=== PATIENT | female | born 1940 | race Caucasian/White ===

== ENCOUNTER → 2016-09-28 | Outpatient (CLI) | payer MEDICARE, MEDICAID ==
[~2016-09-28] MED LIST: ALDACTONE 25MG25 M1 PO; ASPIRIN 81M81 MG/TA2 PO; CLARITIN 1010 MG/TAB PO; COLACE 100100 MG/CAP PO; COREG 3.123.125 MG/T PO; DEPAKOTE 125MG125 MG PO; DULCOLAX S10 MG/SUPP RC; GERI-TUSSI100 MG/5 M PO; KLOR-CON20 MEQ PO; LASIX 20MG TABL20 MG PO; LIPITOR 10MG10 MG PO; MILK OF MA400 MG/52 PO; MIRALAX PA17 GM/Dose PO; MULTIPLE VITAMI1 CAP PO; PEPCID40 MG PO; PERIDEX (CHLOR480 ML MM; SYNTHROID0.075 MG/T PO; TRADJENTA5 MG PO; TYLENOL 325MG325 MG PO; ULTRAM 50MG TAB50 MG PO; ZOFRAN 4MG T4 MG/TAB PO; ZOLOFT 25MG25 MG PO
[2016-09-28 19:48] LABS: ADJUSTED CALCIUM 9.4 mg/dL (8.4-10.2); BILIRUBIN,TOTAL 0.7 mg/dL (0.0-1.0); CALCIUM 9.4 mg/dL (8.4-10.2); CREATININE, serum 0.87 mg/dL (0.52-1.25); POTASSIUM 4.2 mmol/L (3.4-5.0); TOTAL PROTEIN 7.4 gm/dL (6.4-8.2)
[2016-09-28 20:03] LABS: BASO % 0.5 % (0.0-2.0); EOS # 0.2 (0.0-0.7); GRAN # 3.5 (1.4-6.5); GRAN % 60.3 % (42.2-75.2); HEMATOCRIT 38.9 % (37.0-47.0); HEMOGLOBIN 12.4 g/dl (12.5-16.0); LYMPH # 1.4 (1.2-3.4); LYMPH % 24.8 % (20.0-51.0); MEAN CELL VOLUME 92 fl (80.0-100.0); MEAN CORPUSCULAR HEMOGLOBIN 30 pg (27.0-31.0); MEAN CORPUSCULAR HGB CONC 32 g/dl (33.0-37.0); MEAN PLATELET VOLUME 9.4 fl (7.4-10.4); MONO # 0.6 (0.1-0.6); MONO % 9.9 % (1.7-9.3); PLATELET COUNT 227 K/mm3 (130-400); RED BLOOD COUNT 4.21 M/mm3 (4.10-5.30); REDCELL DISTRIBUTION WIDTH-CV 14.5 % (11.5-14.5); WHITE BLOOD COUNT 5.8 K/mm3 (4.8-10.8)
== END ==
LOC: ZCOL.LAB 19:44
PROVIDERS: Internal Medicine
DX: I10 Essential (primary) hypertension (principal); K21.9 Gastro-esophageal reflux disease without esophagitis; F32.89 Other specified depressive episodes

== ENCOUNTER → 2016-10-10 | Outpatient (CLI) | payer MEDICARE, MEDICAID | LOC: ZCOL.LAB 14:23 | DX: E03.8 Other specified hypothyroidism (principal) ==

== ENCOUNTER 2016-11-01 13:37 | Day surgery (SDC) | payer MEDICARE, MEDICAID ==
[~2016-11-01] VITALS: Ht 157.5 cm; Wt 61.2 kg
[2016-11-01 13:58] VITALS: BP 135/82; PULSE 80; TEMP 97.6
[2016-11-01] MEDS ORDERED: MILK OF MA400 MG/52 PO (14:17)
[2016-11-01] MEDS ORDERED: COLACE 100100 MG/CAP PO (14:17)
[2016-11-01] MEDS ORDERED: ALDACTONE 25MG25 M1 PO (14:18)
[2016-11-01] MEDS ORDERED: TRADJENTA5 MG PO (14:18)
[2016-11-01] MEDS ORDERED: PERIDEX (CHLOR480 ML MM (14:19)
[2016-11-01] MEDS ORDERED: LASIX 20MG TABL20 MG PO (14:19)
[2016-11-01] MEDS ORDERED: PEPCID40 MG PO (14:20)
[2016-11-01] MEDS ORDERED: LIPITOR 10MG10 MG PO (14:20)
[2016-11-01] MEDS ORDERED: MIRALAX PA17 GM/Dose PO (14:21)
[2016-11-01] MEDS ORDERED: DULCOLAX S10 MG/SUPP RC (14:22)
[2016-11-01] MEDS ORDERED: TYLENOL 325MG325 MG PO (14:23)
[2016-11-01] MEDS ORDERED: GERI-TUSSI100 MG/5 M PO (14:23)
[2016-11-01] MEDS ORDERED: ULTRAM 50MG TAB50 MG PO (14:24)
[2016-11-01] MEDS ORDERED: COREG 3.123.125 MG/T PO (14:24)
[2016-11-01] MEDS ORDERED: ZOFRAN 4MG T4 MG/TAB PO (14:25)
[2016-11-01] MEDS ORDERED: ASPIRIN 81M81 MG/TA2 PO (14:25)
[2016-11-01] MEDS ORDERED: SYNTHROID0.075 MG/T PO (14:26)
[2016-11-01] MEDS ORDERED: CLARITIN 1010 MG/TAB PO (14:26)
[2016-11-01] MEDS ORDERED: KLOR-CON20 MEQ PO (14:27)
[2016-11-01] MEDS ORDERED: ZOLOFT 25MG25 MG PO (14:28)
[2016-11-01] MEDS ORDERED: MULTIPLE VITAMI1 CAP PO (14:29)
[2016-11-01] MEDS ORDERED: DEPAKOTE 125MG125 MG PO (14:30)
== END 2016-11-01 15:15 ==
LOC: SDCO 13:37
DX: K94.23 Gastrostomy malfunction (principal); R13.10 Dysphagia, unspecified

== ENCOUNTER → 2016-11-14 | Outpatient (CLI) | payer MEDICARE, MEDICAID | LOC: ZCOL.LAB 12:16 → COL.LAB 12:16 | DX: E03.8 Other specified hypothyroidism (principal); Z02.89 Encounter for other administrative examinations ==

== ENCOUNTER → 2016-12-22 | Outpatient (CLI) | payer MEDICARE, MEDICAID ==
[2016-12-22 12:23] LABS: ADJUSTED CALCIUM 9.2 mg/dL (8.4-10.2); ALBUMIN 3.5 gm/dL (3.5-5.0); BILIRUBIN,TOTAL 0.7 mg/dL (0.0-1.0); CALCIUM 8.8 mg/dL (8.4-10.2); CREATININE, serum 0.73 mg/dL (0.52-1.25); POTASSIUM 4.6 mmol/L (3.4-5.0); TOTAL PROTEIN 6.2 gm/dL (6.4-8.2)
== END ==
LOC: ZCOL.LAB 07:30
PROVIDERS: Internal Medicine
DX: Z43.1 Encounter for attention to gastrostomy (principal); F32.9 Major depressive disorder, single episode, unspecified; E78.4 Other hyperlipidemia

== ENCOUNTER → 2016-12-28 | Outpatient (CLI) | payer MEDICARE, MEDICAID ==
[2016-12-29 00:26] LABS: PH 5 (5-8); SQUAMOUS EPITHELIAL None Seen /hpf; URINE APPEARANCE Clear; URINE BACTERIA None Seen /hpf; URINE BILIRUBIN Negative (NEGATIVE); URINE BLOOD 1+ (NEGATIVE); URINE COLOR Yellow; URINE GLUCOSE Negative (NEGATIVE); URINE KETONE Negative (NEGATIVE); URINE RBC 0-2 /hpf; URINE UROBILINOGEN Negative (NEGATIVE); URINE WBC 0-2 /hpf
== END ==
LOC: ZCOL.LAB 23:47
PROVIDERS: Internal Medicine
DX: N39.0 Urinary tract infection, site not specified (principal)

== ENCOUNTER → 2017-01-10 | Outpatient (CLI) | payer MEDICARE, MEDICAID | LOC: ZCOL.LAB 03:06 | DX: E03.8 Other specified hypothyroidism (principal) ==

== ENCOUNTER → 2017-02-15 | Outpatient (CLI) | payer MEDICARE, MEDICAID ==
[2017-02-15 21:36] LABS: BASO # 0.1 (0.0-0.2); BASO % 0.9 % (0.0-2.0); EOS # 0.4 (0.0-0.7); EOS % 5.2 % (0-4.0); GRAN # 4.1 (1.4-6.5); GRAN % 58.4 % (42.2-75.2); HEMOGLOBIN 12.1 g/dl (12.5-16.0); LYMPH # 1.8 (1.2-3.4); LYMPH % 25.6 % (20.0-51.0); MEAN CELL VOLUME 89 fl (80.0-100.0); MEAN CORPUSCULAR HEMOGLOBIN 29 pg (27.0-31.0); MEAN CORPUSCULAR HGB CONC 33 g/dl (33.0-37.0); MEAN PLATELET VOLUME 9.4 fl (7.4-10.4); MONO # 0.7 (0.1-0.6); MONO % 9.3 % (1.7-9.3); PLATELET COUNT 258 K/mm3 (130-400); RED BLOOD COUNT 4.13 M/mm3 (4.10-5.30); REDCELL DISTRIBUTION WIDTH-CV 14.6 % (11.5-14.5)
[2017-02-15 21:38] LABS: HEMATOCRIT 36.7 % (37.0-47.0)
[2017-02-15 21:41] LABS: CREATININE, serum 0.8 mg/dL (0.52-1.25); POTASSIUM 3.9 mmol/L (3.4-5.0)
== END ==
LOC: ZCOL.LAB 21:29
PROVIDERS: Internal Medicine
DX: I25.5 Ischemic cardiomyopathy (principal)

== ENCOUNTER → 2017-04-23 | Outpatient (CLI) | payer MEDICARE, MEDICAID | LOC: ZCOL.LAB 11:26 | DX: E11.9 Type 2 diabetes mellitus without complications (principal) ==

== ENCOUNTER → 2017-07-02 | Outpatient (CLI) | payer MEDICAID ==
[2017-07-02 10:29] LABS: MUCOUS Present /lpf; PH 5 (5-8); SQUAMOUS EPITHELIAL 0-2 /hpf; URINE APPEARANCE Clear; URINE BACTERIA None Seen /hpf; URINE BILIRUBIN Negative (NEGATIVE); URINE BLOOD 2+ (NEGATIVE); URINE COLOR Yellow; URINE GLUCOSE Negative (NEGATIVE); URINE KETONE Negative (NEGATIVE); URINE LEUKOCYTE ESTERASE Negative (NEGATIVE); URINE PROTEIN(semi-quant) Negative (NEGATIVE); URINE RBC 0-2 /hpf; URINE UROBILINOGEN Negative (NEGATIVE); URINE WBC 0-2 /hpf
[2017-07-02 10:41] LABS: COLLECTION METHOD CLEAN CATCH
== END ==
LOC: ZCOL.LAB 10:19
PROVIDERS: Internal Medicine
DX: N39.0 Urinary tract infection, site not specified (principal)

== ENCOUNTER → 2017-07-02 | Outpatient (CLI) | payer MEDICAID | LOC: ZCOL.LAB 19:58 | DX: Z01.89 Encounter for other specified special examinations (principal) ==

== ENCOUNTER → 2017-09-27 | Outpatient (CLI) | payer MEDICAID ==
[2017-09-27 10:32] LABS: HEMATOCRIT 42.3 % (37.0-47.0); HEMOGLOBIN 14.4 g/dl (12.5-16.0); MEAN CELL VOLUME 90 fl (80.0-100.0); MEAN CORPUSCULAR HEMOGLOBIN 31 pg (27.0-31.0); MEAN CORPUSCULAR HGB CONC 34 g/dl (33.0-37.0); MEAN PLATELET VOLUME 9.3 fl (7.4-10.4); PLATELET COUNT 231 K/mm3 (130-400); RED BLOOD COUNT 4.71 M/mm3 (4.10-5.30)
[2017-09-27 10:41] LABS: CALCIUM 9.3 mg/dL (8.4-10.2); CREATININE, serum 0.77 mg/dL (0.52-1.25); POTASSIUM 4.8 mmol/L (3.4-5.0)
[2017-09-27 11:04] LABS: VALPROIC ACID (DEPAKENE) 40.1 ug/mL (50.0-100.0)
== END ==
LOC: ZCOL.LAB 10:20
PROVIDERS: Internal Medicine
DX: I50.20 Unspecified systolic (congestive) heart failure (principal); I25.5 Ischemic cardiomyopathy; F32.9 Major depressive disorder, single episode, unspecified

== ENCOUNTER 2017-10-28 04:32 | Emergency (ER) | payer MEDICAID ==
[~2017-10-28] VITALS: Wt 65.0 kg
[2017-10-28 07:15] VITALS: BP 144/86; PULSE 80
== END 2017-10-28 07:15 | disposition home or self-care (01) ==
LOC: COL.ER 04:32
DX: R04.0 Epistaxis (principal); I11.0 Hypertensive heart disease with heart failure; I50.9 Heart failure, unspecified; Z79.82 Long term (current) use of aspirin

== ENCOUNTER → 2017-12-05 | Outpatient (CLI) | payer MEDICAID ==
[2017-12-05 11:11] LABS: ANION GAP 11 mmol/L (7-16); BLOOD UREA NITROGEN 11 mg/dL (7-17); CARBON DIOXIDE 32 mmol/L (22-30); CHLORIDE 95 mmol/L (98-107); CREATININE, serum 0.69 mg/dL (0.52-1.25); GLUCOSE 112 mg/dL (74-106); POTASSIUM 4.6 mmol/L (3.4-5.0); SODIUM 137 mmol/L (137-145)
[2017-12-05 11:12] LABS: BASO % 0.7 % (0.0-2.0); EOS # 0.3 (0.0-0.7); EOS % 4.8 % (0-4.0); GRAN # 3.8 (1.4-6.5); HEMATOCRIT 40.3 % (37.0-47.0); HEMOGLOBIN 13.5 g/dl (12.5-16.0); LYMPH # 0.8 (1.2-3.4); LYMPH % 14.7 % (20.0-51.0); MEAN CELL VOLUME 91 fl (80.0-100.0); MEAN CORPUSCULAR HEMOGLOBIN 31 pg (27.0-31.0); MEAN CORPUSCULAR HGB CONC 34 g/dl (33.0-37.0); MONO # 0.5 (0.1-0.6); MONO % 9.4 % (1.7-9.3); PLATELET COUNT 196 K/mm3 (130-400); RED BLOOD COUNT 4.41 M/mm3 (4.10-5.30); REDCELL DISTRIBUTION WIDTH-CV 13.3 % (11.5-14.5)
== END ==
LOC: ZLAB.STJ 10:56
PROVIDERS: Internal Medicine
DX: E11.9 Type 2 diabetes mellitus without complications (principal); I69.091 Dysphagia following nontraumatic subarachnoid hemorrhage

== ENCOUNTER → 2017-12-21 | Outpatient (CLI) | payer MEDICARE, MEDICAID ==
[2017-12-22 01:53] LABS: COLLECTION METHOD CLEAN CATCH
[2017-12-22 01:59] LABS: PH 6 (5-8); SQUAMOUS EPITHELIAL 0-2 /hpf; URINE APPEARANCE Clear; URINE BACTERIA Rare /hpf; URINE BILIRUBIN Negative (NEGATIVE); URINE BLOOD 1+ (NEGATIVE); URINE COLOR Yellow; URINE GLUCOSE Negative (NEGATIVE); URINE KETONE Negative (NEGATIVE); URINE LEUKOCYTE ESTERASE Trace (NEGATIVE); URINE NITRATE Negative (NEGATIVE); URINE PROTEIN(semi-quant) Negative (NEGATIVE); URINE RBC 0-2 /hpf
== END ==
LOC: ZCOL.LAB 23:53
PROVIDERS: Internal Medicine
DX: N39.0 Urinary tract infection, site not specified (principal)

== ENCOUNTER → 2018-01-16 | Outpatient (REF) ==
[2018-01-16 12:23] LABS: HEMATOCRIT 37.8 % (37.0-47.0); HEMOGLOBIN 12.7 g/dl (12.5-16.0); MEAN CELL VOLUME 90 fl (80.0-100.0); MEAN CORPUSCULAR HEMOGLOBIN 30 pg (27.0-31.0); MEAN CORPUSCULAR HGB CONC 34 g/dl (33.0-37.0); MEAN PLATELET VOLUME 9.5 fl (7.4-10.4); PLATELET COUNT 160 K/mm3 (130-400); RED BLOOD COUNT 4.18 M/mm3 (4.10-5.30); REDCELL DISTRIBUTION WIDTH-CV 13.3 % (11.5-14.5)
[2018-01-16 12:29] LABS: CREATININE, serum 0.8 mg/dL (0.52-1.25); POTASSIUM 4.3 mmol/L (3.4-5.0)
== END ==
LOC: ZCOL.LAB 12:10
PROVIDERS: Internal Medicine
DX: G45.8 Other transient cerebral ischemic attacks and related syndromes (principal)

== ENCOUNTER → 2018-02-01 | Outpatient (REF) ==
[2018-02-01 11:42] LABS: CHOLESTEROL RISK RATIO 3.3
[2018-02-01 12:13] LABS: THYROID STIMULATING HORMONE 0.696 uIU/mL (0.465-4.680)
== END ==
LOC: ZCOL.LAB 11:25
PROVIDERS: Internal Medicine
DX: Z01.89 Encounter for other specified special examinations (principal)

== ENCOUNTER → 2018-02-09 | Outpatient (REF) ==
[2018-02-09 11:57] LABS: MUCOUS Present /lpf; PH 6 (5-8); SQUAMOUS EPITHELIAL 0-2 /hpf; URINE APPEARANCE Clear; URINE BACTERIA Rare /hpf; URINE BILIRUBIN Negative (NEGATIVE); URINE BLOOD 1+ (NEGATIVE); URINE COLOR Yellow; URINE GLUCOSE Negative (NEGATIVE); URINE KETONE Negative (NEGATIVE); URINE LEUKOCYTE ESTERASE 1+ (NEGATIVE); URINE NITRATE Negative (NEGATIVE); URINE PROTEIN(semi-quant) Negative (NEGATIVE); URINE RBC 0-2 /hpf; URINE UROBILINOGEN Negative (NEGATIVE)
[2018-02-09 12:40] LABS: COLLECTION METHOD CLEAN CATCH
== END ==
LOC: ZCOL.LAB 11:29
PROVIDERS: Internal Medicine
DX: N39.0 Urinary tract infection, site not specified (principal)

== ENCOUNTER → 2018-02-15 | Outpatient (CLI) | payer MEDICARE, MEDICAID ==
[2018-02-15 12:31] LABS: CALCIUM 8.9 mg/dL (8.4-10.2); CREATININE, serum 0.75 mg/dL (0.52-1.25); POTASSIUM 4.8 mmol/L (3.4-5.0)
== END ==
LOC: ZCOL.LAB 11:57
PROVIDERS: Internal Medicine
DX: I50.20 Unspecified systolic (congestive) heart failure (principal)

== ENCOUNTER → 2018-03-04 | Outpatient (CLI) | payer MEDICARE, MEDICAID ==
[2018-03-04 12:53] LABS: CALCIUM 8.4 mg/dL (8.4-10.2); CREATININE, serum 0.78 mg/dL (0.52-1.25); POTASSIUM 4.6 mmol/L (3.4-5.0)
== END ==
LOC: ZCOL.LAB 11:27
PROVIDERS: Internal Medicine
DX: I25.5 Ischemic cardiomyopathy (principal)

== ENCOUNTER 2018-06-01 01:18 | Emergency (ER) | payer MEDICARE, MEDICAID ==
[~2018-06-01] VITALS: Ht 157.5 cm; Wt 65.9 kg
[2018-06-01 01:26] VITALS: TEMP 97.6
[2018-06-01] MEDS ORDERED: MELATONIN5 M1 SL (02:49)
[2018-06-01] MEDS ORDERED: DESYREL 50MG50 MG PO (02:50)
[2018-06-01] MEDS ORDERED: DITROPAN 5MG TAB5 MG PO (02:51)
[2018-06-01] MEDS ORDERED: ELIQUIS 5MG PO (02:51)
[2018-06-01] MEDS ORDERED: SEROQUEL 2525 MG/TAB PO (02:53)
[2018-06-01] MEDS ORDERED: ATIVAN 0.50.5 MG/TAB PO ×2 (02:54)
[2018-06-01] MEDS ORDERED: EFFEXOR-XR150 MG PO (02:54)
[2018-06-01] MEDS ORDERED: ARICEPT10 MG PO (02:55)
[2018-06-01] MEDS ORDERED: DOXYCYCLINE HY100 MG PO (02:59)
[2018-06-01 03:20] VITALS: BP 142/93; PULSE 80
== END 2018-06-01 03:22 ==
LOC: COL.ER 01:18
DX: R04.0 Epistaxis (principal); I11.0 Hypertensive heart disease with heart failure; I50.9 Heart failure, unspecified; E11.9 Type 2 diabetes mellitus without complications; I48.91 Unspecified atrial fibrillation; E78.5 Hyperlipidemia, unspecified; F03.90 Unspecified dementia, unspecified severity, without behavioral disturbance, psychotic disturbance, mood disturbance, and anxiety; Z79.01 Long term (current) use of anticoagulants

== ENCOUNTER → 2018-06-24 | Outpatient (CLI) | payer MEDICARE, MEDICAID ==
[~2018-06-24] MED LIST changes: +ARICEPT10 MG PO; +ATIVAN 0.50.5 MG/TAB PO; +DESYREL 50MG50 MG PO; +DITROPAN 5MG TAB5 MG PO; +DOXYCYCLINE HY100 MG PO; +EFFEXOR-XR150 MG PO; +ELIQUIS 5MG PO; +MELATONIN5 M1 SL; +SEROQUEL 2525 MG/TAB PO
== END ==
LOC: ZCOL.LAB 09:54
DX: E11.9 Type 2 diabetes mellitus without complications (principal)

== ENCOUNTER → 2018-08-08 | Outpatient (CLI) | payer MEDICARE, MEDICAID ==
[~2018-08-08] MED LIST changes: +ASPIRIN E.C. 8181 MG PO; +K-TAB10 PO; +OMNICEF 300MG300 MG PO
[2018-08-08 13:29] LABS: BASO % 0.5 % (0.0-2.0); EOS # 0.3 (0.0-0.7); EOS % 4.1 % (0-4.0); GRAN # 4.5 (1.4-6.5); GRAN % 60.2 % (42.2-75.2); HEMATOCRIT 37.6 % (37.0-47.0); HEMOGLOBIN 11.8 g/dl (12.5-16.0); LYMPH # 1.9 (1.2-3.4); LYMPH % 25.8 % (20.0-51.0); MEAN CELL VOLUME 95 fl (80.0-100.0); MEAN CORPUSCULAR HEMOGLOBIN 30 pg (27.0-31.0); MEAN CORPUSCULAR HGB CONC 31 g/dl (33.0-37.0); MEAN PLATELET VOLUME 9.6 fl (7.4-10.4); MONO # 0.7 (0.1-0.6); MONO % 9.1 % (1.7-9.3); PLATELET COUNT 254 K/mm3 (130-400); RED BLOOD COUNT 3.94 M/mm3 (4.10-5.30); REDCELL DISTRIBUTION WIDTH-CV 14.5 % (11.5-14.5)
[2018-08-08 13:39] LABS: ALBUMIN 4.1 gm/dL (3.5-5.0); BILIRUBIN,TOTAL 0.6 mg/dL (0.0-1.0); CREATININE, serum 0.72 mg/dL (0.52-1.25); POTASSIUM 4.3 mmol/L (3.4-5.0); TOTAL PROTEIN 7.1 gm/dL (6.4-8.2); URIC ACID 5.5 mg/dL (2.5-6.2)
[2018-08-08 14:09] LABS: THYROID STIMULATING HORMONE 4.03 uIU/mL (0.465-4.680)
== END ==
LOC: ZCOL.LAB 11:47
PROVIDERS: Internal Medicine
DX: E11.9 Type 2 diabetes mellitus without complications (principal)

== ENCOUNTER → 2018-09-18 | Outpatient (CLI) | payer MEDICARE, MEDICAID ==
[2018-09-18 11:40] LABS: BASO % 0.2 % (0.0-2.0); EOS # 0.2 (0.0-0.7); GRAN # 8.5 (1.4-6.5); HEMOGLOBIN 10.6 g/dl (12.5-16.0); LYMPH # 1.1 (1.2-3.4); LYMPH % 10.5 % (20.0-51.0); MEAN CELL VOLUME 90 fl (80.0-100.0); MEAN CORPUSCULAR HEMOGLOBIN 29 pg (27.0-31.0); MEAN CORPUSCULAR HGB CONC 32 g/dl (33.0-37.0); MEAN PLATELET VOLUME 9.3 fl (7.4-10.4); MONO # 0.8 (0.1-0.6); MONO % 7.6 % (1.7-9.3); PLATELET COUNT 339 K/mm3 (130-400); RED BLOOD COUNT 3.69 M/mm3 (4.10-5.30)
[2018-09-18 12:00] LABS: HEMATOCRIT 33.1 % (37.0-47.0)
== END ==
LOC: ZCOL.LAB 10:29
PROVIDERS: Internal Medicine
DX: R26.2 Difficulty in walking, not elsewhere classified (principal)

== ENCOUNTER → 2018-09-23 | Outpatient (CLI) | payer MEDICARE, MEDICAID ==
[2018-09-24 10:26] LABS: IRON,SERUM 63 ug/dL (35-150)
[2018-09-24 10:36] LABS: TOTAL IRON BINDING CAPACITY 257 ug/dL (265-497)
== END ==
LOC: ZCOL.LAB 16:12
PROVIDERS: Internal Medicine
DX: I50.20 Unspecified systolic (congestive) heart failure (principal); R26.2 Difficulty in walking, not elsewhere classified

== ENCOUNTER 2018-11-01 10:51 | Emergency (ER) | payer MEDICARE, MEDICAID ==
[~2018-11-01] VITALS: Ht 157.5 cm; Wt 62.2 kg
[2018-11-01 11:02] VITALS: BP 123/66; TEMP 98.1
[2018-11-01] MEDS ORDERED: ULTRAM 50MG TAB50 MG PO (11:49)
[2018-11-01 12:29] VITALS: PULSE 80
== END 2018-11-01 12:27 | disposition home or self-care (01) ==
LOC: COL.ER 10:51
DX: R04.0 Epistaxis (principal); I48.91 Unspecified atrial fibrillation; E11.9 Type 2 diabetes mellitus without complications; I50.9 Heart failure, unspecified; F03.90 Unspecified dementia, unspecified severity, without behavioral disturbance, psychotic disturbance, mood disturbance, and anxiety; Z79.82 Long term (current) use of aspirin; Z95.0 Presence of cardiac pacemaker; Z90.710 Acquired absence of both cervix and uterus

== ENCOUNTER → 2018-12-10 | Outpatient (CLI) | payer MEDICARE, MEDICAID ==
[2018-12-10 09:56] LABS: BASO # 0.1 (0.0-0.2); BASO % 0.5 % (0.0-2.0); EOS # 0.4 (0.0-0.7); EOS % 4.4 % (0-4.0); GRAN # 5.7 (1.4-6.5); GRAN % 59.2 % (42.2-75.2); HEMATOCRIT 33.3 % (37.0-47.0); HEMOGLOBIN 10.8 g/dl (12.5-16.0); LYMPH # 2.5 (1.2-3.4); LYMPH % 26.4 % (20.0-51.0); MEAN CELL VOLUME 91 fl (80.0-100.0); MEAN CORPUSCULAR HEMOGLOBIN 30 pg (27.0-31.0); MEAN CORPUSCULAR HGB CONC 32 g/dl (33.0-37.0); MONO # 0.8 (0.1-0.6); MONO % 8.7 % (1.7-9.3); PLATELET COUNT 314 K/mm3 (130-400); RED BLOOD COUNT 3.65 M/mm3 (4.10-5.30); REDCELL DISTRIBUTION WIDTH-CV 16.9 % (11.5-14.5)
[2018-12-10 09:58] LABS: ALBUMIN 4.1 gm/dL (3.5-5.0); BILIRUBIN,TOTAL 0.5 mg/dL (0.0-1.0); CALCIUM 9.1 mg/dL (8.4-10.2); CHOLESTEROL RISK RATIO 2.8; CREATININE, serum 0.67 (0.52-1.25); POTASSIUM 4.5 mmol/L (3.4-5.0); TOTAL PROTEIN 7.3 gm/dL (6.4-8.2)
[2018-12-10 10:28] LABS: THYROID STIMULATING HORMONE 4.67 uIU/mL (0.465-4.680)
== END ==
LOC: ZCOL.LAB 08:29
PROVIDERS: Internal Medicine
DX: I50.43 Acute on chronic combined systolic (congestive) and diastolic (congestive) heart failure (principal); I25.5 Ischemic cardiomyopathy; R26.2 Difficulty in walking, not elsewhere classified; R74.8 Abnormal levels of other serum enzymes

== ENCOUNTER 2018-12-21 03:12 | Emergency (ER) | payer MEDICARE, MEDICAID ==
[~2018-12-21] VITALS: Ht 157.5 cm; Wt 63.6 kg
[2018-12-21 03:22] VITALS: BP 153/72; PULSE 80; TEMP 97.5
[2018-12-21] MEDS ORDERED: CLEOCIN HCL300 MG PO (03:57)
== END 2018-12-21 05:36 | disposition home or self-care (01) ==
LOC: COL.ER 03:12
DX: R04.0 Epistaxis (principal); I10 Essential (primary) hypertension; F03.90 Unspecified dementia, unspecified severity, without behavioral disturbance, psychotic disturbance, mood disturbance, and anxiety; Z79.82 Long term (current) use of aspirin; Z87.891 Personal history of nicotine dependence; Z90.710 Acquired absence of both cervix and uterus

== ENCOUNTER → 2019-05-09 | Outpatient (CLI) | payer MEDICARE, MEDICAID ==
[~2019-05-09] MED LIST changes: +CLEOCIN HCL300 MG PO
[2019-05-09 16:44] LABS: BASO % 0.4 % (0.0-2.0); EOS # 0.2 (0.0-0.7); EOS % 3.9 % (0-4.0); GRAN # 3.8 (1.4-6.5); GRAN % 70.9 % (42.2-75.2); HEMATOCRIT 38.9 % (37.0-47.0); HEMOGLOBIN 12.6 g/dl (12.5-16.0); LYMPH # 0.8 (1.2-3.4); LYMPH % 14.5 % (20.0-51.0); MEAN CELL VOLUME 92 fl (80.0-100.0); MEAN CORPUSCULAR HEMOGLOBIN 30 pg (27.0-31.0); MEAN CORPUSCULAR HGB CONC 32 g/dl (33.0-37.0); MEAN PLATELET VOLUME 9.8 fl (7.4-10.4); MONO # 0.5 (0.1-0.6); MONO % 9.9 % (1.7-9.3); PLATELET COUNT 217 K/mm3 (130-400); RED BLOOD COUNT 4.22 M/mm3 (4.10-5.30); REDCELL DISTRIBUTION WIDTH-CV 14.7 % (11.5-14.5)
[2019-05-09 17:13] LABS: BILIRUBIN,TOTAL 0.7 mg/dL (0.0-1.0); CALCIUM 8.5 mg/dL (8.4-10.2); CREATININE, serum 0.75 (0.52-1.25); POTASSIUM 4.8 mmol/L (3.4-5.0); TOTAL PROTEIN 7.1 gm/dL (6.4-8.2)
== END ==
LOC: ZCOL.LAB 14:22
PROVIDERS: Internal Medicine
DX: I50.42 Chronic combined systolic (congestive) and diastolic (congestive) heart failure (principal)

== ENCOUNTER → 2019-05-28 | Outpatient (CLI) | payer MEDICARE, MEDICAID ==
[2019-05-28 13:03] LABS: PH 6 (5-8); URINE APPEARANCE Hazy; URINE BACTERIA None Seen /hpf; URINE BILIRUBIN Negative (NEGATIVE); URINE BLOOD 2+ (NEGATIVE); URINE COLOR Yellow; URINE GLUCOSE Negative (NEGATIVE); URINE KETONE Negative (NEGATIVE); URINE LEUKOCYTE ESTERASE 2+ (NEGATIVE); URINE NITRATE Negative (NEGATIVE); URINE PROTEIN(semi-quant) Negative (NEGATIVE); URINE UROBILINOGEN Negative (NEGATIVE)
[2019-05-28 13:44] LABS: COLLECTION METHOD CLEAN CATCH
== END ==
LOC: ZCOL.LAB 10:57
PROVIDERS: Internal Medicine
DX: N39.0 Urinary tract infection, site not specified (principal)

== ENCOUNTER 2019-06-19 14:06 | Inpatient (IN) | payer MEDICARE, MEDICAID ==
[~2019-06-19] VITALS: Ht 165.1 cm; Wt 76.7 kg
[2019-06-19 15:02] LABS: BASO % 0.3 % (0.0-2.0); GRAN # 10.3 (1.4-6.5); GRAN % 88.4 % (42.2-75.2); HEMATOCRIT 33.4 % (37.0-47.0); HEMOGLOBIN 11.2 g/dl (12.5-16.0); LYMPH # 0.4 (1.2-3.4); LYMPH % 3.4 % (20.0-51.0); MEAN CELL VOLUME 89 fl (80.0-100.0); MEAN CORPUSCULAR HEMOGLOBIN 30 pg (27.0-31.0); MEAN CORPUSCULAR HGB CONC 34 g/dl (33.0-37.0); MONO # 0.8 (0.1-0.6); MONO % 7.2 % (1.7-9.3); PLATELET COUNT 252 K/mm3 (130-400); RED BLOOD COUNT 3.74 M/mm3 (4.10-5.30)
[2019-06-19 15:25] LABS: ALBUMIN 3.9 gm/dL (3.5-5.0); BILIRUBIN,TOTAL 1.2 mg/dL (0.0-1.0); CALCIUM 8.7 mg/dL (8.4-10.2); CREATININE, serum 0.85 (0.52-1.25); POTASSIUM 4.6 mmol/L (3.4-5.0); TOTAL PROTEIN 7.4 gm/dL (6.4-8.2)
[2019-06-19 17:13] LABS: COLLECTION METHOD CLEAN CATCH
[2019-06-19 17:21] LABS: TROPONIN-I 0.053 ng/mL (0.000-0.035)
[2019-06-19 17:39] LABS: MUCOUS Present /lpf; PH 6 (5-8); URINE APPEARANCE Cloudy; URINE BACTERIA Many /hpf; URINE BILIRUBIN Negative (NEGATIVE); URINE BLOOD 3+ (NEGATIVE); URINE COLOR Yellow; URINE GLUCOSE Negative (NEGATIVE); URINE KETONE Negative (NEGATIVE); URINE LEUKOCYTE ESTERASE 1+ (NEGATIVE); URINE NITRATE Negative (NEGATIVE); URINE PROTEIN(semi-quant) Negative (NEGATIVE)
[2019-06-19 18:01] LABS: ARTERIAL BLD GAS O2 SATURATION 96.7 % (92-100); ARTERIAL BLD GAS TCO2 CT 22.8; ARTERIAL BLOOD GAS BASE EXCESS -1.3 (-2-2); ARTERIAL BLOOD GAS HCO3 21.8 meq/L (22-26); ARTERIAL BLOOD GAS PCO2 31.9 mmHg (35-45); ARTERIAL BLOOD GAS PO2 87.2 mmHg (80-100); ARTERIAL BLOOD GAS pH 7.45 (7.35-7.45)
--- NOTE | 2019-06-19 18:15 | NUR ---
Pt up to unit from ED. Pt situated in room and Dr. Landa in to see pt now. Pt report given to Briseida FORMAN.
[2019-06-19 18:30] VITALS: BP 139/62; PULSE 111; TEMP 98
[2019-06-19] MEDS ORDERED: VENLAFAXINE225 MG PO (19:16)
[2019-06-19] MEDS ORDERED: FERROUS GL325 MG/TAB (19:17)
[2019-06-19] MEDS ORDERED: SEROQUEL 2525 MG/TAB PO (19:19)
[2019-06-19 19:39] VITALS: BP 150/82; PULSE 80; TEMP 98.5
[2019-06-19] MEDS ORDERED: ALDACTONE 25MG25 M1 PO (19:46)
--- NOTE | 2019-06-19 19:51 | NUR ---
Partial 5-page completed over the phone with patient's daughter, Thien. Privacy password given. All questions answered.
--- NOTE | 2019-06-19 20:45 | NUR ---
Shift assessment complete. Patient in bed, arouses to voice. Disoriented x4. Speech clear, able to participate in conversation. Denies pain. Incontinent of urine, brief changed, lopez-care provided. HR regular, murmur noted. Patient able to shift self in bed. Notified pt that RN had spoken with Thien, her daughter. Patient remembers daughter, and states she is ok with staff speaking to her. Denies further needs at this time. Will continue to monitor.
[2019-06-19 23:19] VITALS: BP 130/58; PULSE 81; TEMP 100.3
[2019-06-19] MEDS ORDERED: DEPAKOTE 125MG125 M1 PO (23:37)
[2019-06-19] MEDS ORDERED: MUCINEX 60600 MG/TA1 PO (23:40)
[2019-06-19] MEDS ORDERED: SYNTHROID0.1 MG/TAB PO (23:43)
[2019-06-19] MEDS ORDERED: DESYREL 50MG50 MG PO (23:48)
[2019-06-19] MEDS ORDERED: TYLENOL 325MG325 MG PO (23:50)
[2019-06-19] MEDS ORDERED: VOLTAREN GEL 1%1 TU TP (23:52)
[2019-06-19] MEDS ORDERED: ZOFRAN 4MG T4 MG/TAB PO (23:53)
[2019-06-19] MEDS ORDERED: NYSTATIN CREAM15 GM TP (23:56)
--- NOTE | 2019-06-20 | NUR ---
Attempted to complete 0000 neuro check. Patient awake. Stating she wants to be left alone. When asked to open her eyes, she stated she would, but will not open them to complete neuro assessment. Disoriented to place, and states she does not want to give me her name and . Able to move all 4 extremities on bed. Also able to reposition herself in bed. Denies pain. Will continue to monitor.
--- NOTE | 2019-06-20 00:32 | NUR ---
6 hour troponin 0.105 (previous 0.053). Notified MELVIN Han. En route.
[2019-06-20 03:55] VITALS: BP 134/68; PULSE 80; TEMP 99.9
--- NOTE | 2019-06-20 04:00 | NUR ---
Patient in bed, resting. Oriented to name, but not . Disoriented to place/time/situation. Pt allowed neuro assessment to be completed. Denies pain. States she wants to go back to sleep. Denies further needs at this time. Will continue to monitor.
--- NOTE | 2019-06-20 05:45 | NUR ---
Called by lab, + staph aureus. Notified MELVIN Han. Patient on abx.
--- NOTE | 2019-06-20 07:42 | NUR ---
Vancomycin Initial Dosing Pharmacy Note Ordering provider: Adriana Landa MD Indication/duration: [facility] BACTEREMIA LABS: WBC 11.6, SCr 0.85, CrCl ~45 Recommendation: VANCOMYCIN 17MG/KG Loading dose: 1.5 grams Maintenance dose: 1.25 grams every 24 hours Trough goal: 15-20 ug/mL. TROUGH 06/23/19 @ 0630
[2019-06-20 08:41] VITALS: BP 126/61; PULSE 80; TEMP 98.9
[2019-06-20 09:42] LABS: BASO % 0.1 % (0.0-2.0); GRAN # 5.8 (1.4-6.5); GRAN % 85.5 % (42.2-75.2); LYMPH # 0.4 (1.2-3.4); LYMPH % 6.3 % (20.0-51.0); MEAN CELL VOLUME 91 fl (80.0-100.0); MEAN CORPUSCULAR HEMOGLOBIN 30 pg (27.0-31.0); MEAN CORPUSCULAR HGB CONC 33 g/dl (33.0-37.0); MEAN PLATELET VOLUME 8.9 fl (7.4-10.4); MONO # 0.5 (0.1-0.6); MONO % 6.9 % (1.7-9.3); PLATELET COUNT 193 K/mm3 (130-400); RED BLOOD COUNT 3.69 M/mm3 (4.10-5.30); REDCELL DISTRIBUTION WIDTH-CV 14.2 % (11.5-14.5)
[2019-06-20 09:48] LABS: HEMATOCRIT 33.6 % (37.0-47.0)
[2019-06-20 09:54] LABS: CALCIUM 8.2 mg/dL (8.4-10.2); CREATININE, serum 0.81 (0.52-1.25); POTASSIUM 4.1 mmol/L (3.4-5.0)
--- NOTE | 2019-06-20 10:14 | NUR ---
SAMIRA met with the patient and the patient's daughter, Thien Cali (ph#[phone]), to discuss discharge plan. The patient resides at [facility] for long-term care. The patient's daughter reports that the plan is for the patient to return back to [facility] upon discharge. SAMIRA presented and explained the Patient Choice Form to the patient and her daughter. The patient signed and she was provided a copy. The patient's PCP is Dr. Bharti York and the patient does not have advanced directives completed. The patient's daughter reports that she plans on working on getting them completed. SAMIRA offered a DPOA-HC form. The patient's daughter states that she plans to just do it at [facility]. SAMIRA contacted and faxed updates to Thien at [facility]. SAMIRA to continue to follow.
--- NOTE | 2019-06-20 10:47 | NUR ---
Pt alert to person but confused to time and place. Pt slept until breakfast arrived. Pt's daughter in to see pt and hospitalist saw pt while she was here. Pt has hx of alzheimers and no significant change from normal per daughter per cognition. Pt incontinent of urine. Pt assisted x1 to BSC with gait belt. Pt has smears of soft BM but no real results. Pt assisted back to bed and pt assisted to eat a couple bites of breakfast and then pt refused to eat more. Pt IV patent no redness or infiltration noted. Pt has fall precautions in place. Pt SOB with exertion to BSC. Critical Troponin called to Dr. Landa.
[2019-06-20 11:35] VITALS: BP 118/57; PULSE 80; TEMP 100.2
--- NOTE | 2019-06-20 15:21 | NUR ---
RA SP02 86% PLACED BACK ON 1 LPM NC 90%
[2019-06-20 16:14] VITALS: BP 111/57; PULSE 80; TEMP 97.5
--- NOTE | 2019-06-20 18:42 | NUR ---
Pt very restless and confused this afternoon. Pt incontinent of BMx2 and lopez cares provided. Pt has fall precautions in place. Pt denies pain. Pt IV patent no redness or infiltration. Pt spit out coreg.
[2019-06-20 19:35] VITALS: BP 136/63; PULSE 80; TEMP 98.7
--- NOTE | 2019-06-20 20:30 | NUR ---
Initial shift assessment done- confused- wanting to sit on the edge of bed, states she doesnt want to be here- angry at times-- states shes not taking any meds,, did get her to take her seraquel with some diet pepsi but refused aricept-on fall precautions- close to desk, bed alarm on
[2019-06-20 23:14] VITALS: BP 143/63; PULSE 80; TEMP 97.8
[2019-06-21 03:59] VITALS: BP 120/60; PULSE 80; TEMP 97.4
--- NOTE | 2019-06-21 06:33 | NUR ---
Did sleep all night after seraquel was given last night-- was incontinent of urine/stool x2 this shift-
[2019-06-21 06:46] LABS: HEMOGLOBIN 11.3 g/dl (12.5-16.0); MEAN CELL VOLUME 92 fl (80.0-100.0); MEAN CORPUSCULAR HEMOGLOBIN 30 pg (27.0-31.0); MEAN CORPUSCULAR HGB CONC 33 g/dl (33.0-37.0); MEAN PLATELET VOLUME 9.4 fl (7.4-10.4); PLATELET COUNT 188 K/mm3 (130-400); RED BLOOD COUNT 3.77 M/mm3 (4.10-5.30); REDCELL DISTRIBUTION WIDTH-CV 14.2 % (11.5-14.5)
[2019-06-21 06:49] LABS: HEMATOCRIT 34.7 % (37.0-47.0)
[2019-06-21 06:55] LABS: CALCIUM 8.4 mg/dL (8.4-10.2); CREATININE, serum 0.83 (0.52-1.25); POTASSIUM 3.9 mmol/L (3.4-5.0)
[2019-06-21 08:02] LABS: BAND 28 % (0-10); EOSINOPHIL 2 % (0-4); LYMPHOCYTE 11 % (20.0-51.0); NEUTROPHILS 43 % (42.0-75.2)
[2019-06-21 08:03] LABS: PLATELET ESTIMATE NORMAL (NORMAL)
[2019-06-21 09:00] VITALS: BP 129/53; PULSE 79; TEMP 98.2
--- NOTE | 2019-06-21 11:07 | NUR ---
Patient was assisted out of bed for breakfast after daughter arrived around 0900. Patient was unhappy about getting out of bed and eating. Was displeased with having VS taken. Responses received from patient would be "what do you care." She did drink some diet coke that daughter brought in but wasn't very interested in eating breakfast. She transferred to recliner with one assist, required a lot of cueing. Respirations are even and nonlabored. When asked if she was experiencing pain, again the answer was "what do you care." Call light and personal items are within reach.
[2019-06-21 13:21] VITALS: BP 113/55; PULSE 80; TEMP 97.7
[2019-06-21 16:02] VITALS: BP 130/74; PULSE 80
--- NOTE | 2019-06-21 20:00 | NUR ---
Initial shift assessment done- confused- trying to walk to the bathroom-very upset that the bed alarm goes off every time she stands up- explanation given but needs continual review-- did get pt to eat a few bites of supper, was able with much caoxing to get pt to take the seraquel/omnicef but refused aricept and lipitor--will wait for till pt calms down to restart INT
[2019-06-21 20:30] VITALS: BP 121/75; PULSE 82; TEMP 97
[2019-06-21 23:26] VITALS: BP 114/58; PULSE 80; TEMP 97.7
[2019-06-22 03:40] VITALS: PULSE 80
--- NOTE | 2019-06-22 05:40 | NUR ---
Did not sleep much last night- up every 45min- hour, standing at the side of the bed- upset about "how things are done here"- did get INT started to right hand- Incontinent of urine many times during the shift- pull-ups changed as needed, did have small amount of soft stool this morning- able to walk into bathroom with standby assist
[2019-06-22 07:40] LABS: BASO % 0.4 % (0.0-2.0); EOS # 0.2 (0.0-0.7); EOS % 2.2 % (0-4.0); GRAN % 72.5 % (42.2-75.2); HEMOGLOBIN 11.7 g/dl (12.5-16.0); LYMPH # 1.1 (1.2-3.4); LYMPH % 12.9 % (20.0-51.0); MEAN CELL VOLUME 90 fl (80.0-100.0); MEAN CORPUSCULAR HEMOGLOBIN 30 pg (27.0-31.0); MEAN CORPUSCULAR HGB CONC 33 g/dl (33.0-37.0); MEAN PLATELET VOLUME 9.6 fl (7.4-10.4); MONO # 0.9 (0.1-0.6); MONO % 10.8 % (1.7-9.3); PLATELET COUNT 228 K/mm3 (130-400); RED BLOOD COUNT 3.94 M/mm3 (4.10-5.30); REDCELL DISTRIBUTION WIDTH-CV 13.8 % (11.5-14.5)
[2019-06-22 07:48] LABS: HEMATOCRIT 35.3 % (37.0-47.0)
[2019-06-22 08:04] LABS: CALCIUM 8.3 mg/dL (8.4-10.2); CREATININE, serum 0.7 (0.52-1.25); POTASSIUM 3.7 mmol/L (3.4-5.0)
--- NOTE | 2019-06-22 08:16 | NUR ---
Patient is very agitated this morning. Does not understand why she is in the hospital. Did attempt to explain situation and she began cursing. States she feels as if she is in halfway. Has been assisted from bed to chair multiple times. Did offer to walk and patient declined. Have tried to redirect several times without success. Currently has been laying in bed with eyes closed by her choice. Has been provided with ice and diet coke. Personal items and call light are within reach.
[2019-06-22 16:28] VITALS: BP 134/60; PULSE 80; TEMP 98.1
--- NOTE | 2019-06-22 18:09 | NUR ---
Patient is restingin bed, daughter is at bedside, they are talking on phone to a family member. Patient has required 1:1 sitter since 1500, has been trying to climb out of bed, has been yelling at staff, pulled on IV. Did remove old IV, replaced with new with patient's permission. She did take IV antibiotic with intention of leaving after. Did receive PRN anxiety medication and was able to rest. Has been plesant and cooperative with staff since then. Call light and personal items are withn reach.
[2019-06-23] VITALS (13 sets, daily range): BP systolic 117–170; BP diastolic 51–73; PULSE 79–80; TEMP 97.1–98.1
--- NOTE | 2019-06-23 05:22 | NUR ---
Pt has had a restless night. Pt has been in and out of sleep throughout the night. Pt is incontinent of bladder. No BM this shift. Pt has had a 1:1 sitter for safety. No further concerns at this time. Call light and personal belongings within reach.
--- NOTE | 2019-06-23 07:26 | NUR ---
Report given to DASIA Sneed. Pt slept well throughout the night. Pt was on a 1:1 sitter. Pt did pick at her IV, pressing on the current IV access helps with patency. No further concerns at this time.
--- NOTE | 2019-06-23 08:34 | NUR ---
Assessment completed, drowsy but easy to arouse, confused and agitated when awake, patient refusing to take PO a.m meds at this time, will try again in a little while, does not appear to be in any acute pain or discomfort, when asked questions her only respone this morning is "I dont care", heart Paced on Tele, lungs CTA/ no reps.difficulty, patient is incontient of urine, no skin breakdown noted from prior shift, we have changed positong and bed alarm is on, will continue to monitor
--- NOTE | 2019-06-23 09:47 | NUR ---
SAMIRA contacted and faxed updates to Thien at [facility]. SAMIRA to continue to follow.
--- NOTE | 2019-06-23 11:00 | NUR ---
Pt picked up by Hany Sneed.report to Hany Sneed.
--- NOTE | 2019-06-23 11:45 | NUR ---
patient finsihed with MICAH and is very drowsy, vital signs stable, will continue to monitor
--- NOTE | 2019-06-23 16:02 | NUR ---
Patient still very drowsy, vital signs remain stable, she is agitated when we wake her up, refusing PO intake
[2019-06-24 04:48] VITALS: BP 130/70; PULSE 80; TEMP 97.9
[2019-06-24 07:42] VITALS: BP 143/65; PULSE 80
--- NOTE | 2019-06-24 08:09 | NUR ---
Assessment completed, alert but disoriented, she is agitated and does not want us doing anything with her this morning and keeps telling us to get out/ will not answer questions appropriately or follow simple commands or requests, vital signs stable, does not appear to be in pain or discomfort, paced on tele, from the best I could tell from limited assessment her lungs are CTA/ she is not having any noticeable resp.difficulty, she is incontinent of urine and we are doing frequent checks/ care, patient changes positiong in bed independently, as of right now patient is refusing to take any medicaitons or eat breakfast/ will re-attempt in a little while, discharge planning for today, will continue to monitor
--- NOTE | 2019-06-24 09:49 | NUR ---
Patient is getting more agitated as the morning goes on, she is becoming more impulsive and trying to get up on her own, all fall precautions are in place, hospitalist aware of patients condition, patient not willing to take any PO meds as this time and is suspicious of our care
[2019-06-24 11:44] VITALS: BP 462/77; PULSE 80; TEMP 97.3
[2019-06-24] MEDS ORDERED: CEFAZOLIN SODI100 ML IV (11:46)
[2019-06-24] MEDS ORDERED: PRINIVIL5 MG PO (11:47)
--- NOTE | 2019-06-24 13:01 | NUR ---
The patient is to discharge today, 06/24, back to [facility] for a skilled stay. Transportation is to be by private vehicle, via the patient's daughter (Thien) around 1530. SAMIRA informed the patient's RN and Thien at [facility] of this. They were both in agreeance to the time. SAMIRA also explained the IM form to Thien via phone. Thien gave SW her verbal consent. No additional needs at this time.
--- NOTE | 2019-06-24 17:01 | NUR ---
patient transferring back to [facility] living, She is being trasnported by her daughter via private vehicle, PICC line placed prior to discharge, patient will get 4 weeks of outpatient IV Abx tx, I have called and given report to receiving nurse at [facility]
== END 2019-06-24 17:03 | DRG 689 ==
LOC: COL.ER 14:06 → MEDICAL 16:40
PROVIDERS: Family Medicine; Nurse Practitioner Family; Physician Assistant; ADMIT Student in an Organized Health Care Education/Training Program
PROC: 02HV33Z Insertion of Infusion Device into Superior Vena Cava, Percutaneous Approach (ICD-10-PCS; principal; 2019-06-24)
DX: N39.0 Urinary tract infection, site not specified (principal); I50.23 Acute on chronic systolic (congestive) heart failure; I21.4 Non-ST elevation (NSTEMI) myocardial infarction; G93.40 Encephalopathy, unspecified; R78.81 Bacteremia; F03.90 Unspecified dementia, unspecified severity, without behavioral disturbance, psychotic disturbance, mood disturbance, and anxiety; I11.0 Hypertensive heart disease with heart failure; I48.91 Unspecified atrial fibrillation; E78.5 Hyperlipidemia, unspecified; Z66 Do not resuscitate; E03.9 Hypothyroidism, unspecified; I08.1 Rheumatic disorders of both mitral and tricuspid valves; G47.00 Insomnia, unspecified; B95.61 Methicillin susceptible Staphylococcus aureus infection as the cause of diseases classified elsewhere; I27.20 Pulmonary hypertension, unspecified; Z79.891 Long term (current) use of opiate analgesic; Z79.82 Long term (current) use of aspirin; Z95.2 Presence of prosthetic heart valve; Z95.810 Presence of automatic (implantable) cardiac defibrillator; Z87.891 Personal history of nicotine dependence; Z86.73 Personal history of transient ischemic attack (TIA), and cerebral infarction without residual deficits; Z90.710 Acquired absence of both cervix and uterus; Z88.0 Allergy status to penicillin; Z88.2 Allergy status to sulfonamides; Z88.5 Allergy status to narcotic agent
CPT/HCPCS: 99223-AI; 99232-AI; 99239; A4216; C1751; J0690; J0696; J1200; J1630; J1940; J2060; J3370; J7030; J7050

== ENCOUNTER → 2019-09-01 | Outpatient (CLI) | payer MEDICARE, MEDICAID ==
[~2019-09-01] MED LIST changes: +CEFAZOLIN SODI100 ML IV; +DEPAKOTE 125MG125 M1 PO; +FERROUS GL325 MG/TAB; +MUCINEX 60600 MG/TA1 PO; +NYSTATIN CREAM15 GM TP; +PRINIVIL5 MG PO; +SYNTHROID0.1 MG/TAB PO; +VENLAFAXINE225 MG PO; +VOLTAREN GEL 1%1 TU TP
[2019-09-01 12:24] LABS: CALCIUM 9.1 mg/dL (8.4-10.2); CREATININE, serum 0.87 (0.52-1.25); POTASSIUM 4.7 mmol/L (3.4-5.0)
== END ==
LOC: ZCOL.LAB 11:33
PROVIDERS: Internal Medicine
DX: I11.0 Hypertensive heart disease with heart failure (principal)

== ENCOUNTER 2019-12-04 02:29 | Emergency (ER) | payer MEDICARE, MEDICAID ==
[~2019-12-04] VITALS: Ht 157.5 cm; Wt 61.4 kg
[2019-12-04 02:36] VITALS: BP 129/79; TEMP 98.2
[2019-12-04 05:35] VITALS: PULSE 80
== END 2019-12-04 05:35 ==
LOC: COL.ER 02:29
DX: R04.0 Epistaxis (principal); I48.91 Unspecified atrial fibrillation; I11.0 Hypertensive heart disease with heart failure; I50.9 Heart failure, unspecified; F03.90 Unspecified dementia, unspecified severity, without behavioral disturbance, psychotic disturbance, mood disturbance, and anxiety; E03.9 Hypothyroidism, unspecified; Z95.2 Presence of prosthetic heart valve; Z86.73 Personal history of transient ischemic attack (TIA), and cerebral infarction without residual deficits; Z79.82 Long term (current) use of aspirin

== ENCOUNTER → 2020-01-10 | Outpatient (CLI) | payer MEDICARE, MEDICAID ==
[2020-01-10 08:35] LABS: BASO # 0.1 (0.0-0.2); BASO % 0.7 % (0.0-2.0); EOS # 0.5 (0.0-0.7); GRAN # 5.4 (1.4-6.5); GRAN % 62.3 % (42.2-75.2); HEMATOCRIT 38.8 % (37.0-47.0); LYMPH # 1.9 (1.2-3.4); LYMPH % 21.4 % (20.0-51.0); MEAN CELL VOLUME 99 fl (80.0-100.0); MEAN CORPUSCULAR HEMOGLOBIN 31 pg (27.0-31.0); MEAN CORPUSCULAR HGB CONC 31 g/dl (33.0-37.0); MONO # 0.8 (0.1-0.6); MONO % 9.3 % (1.7-9.3); PLATELET COUNT 267 K/mm3 (130-400); RED BLOOD COUNT 3.94 M/mm3 (4.10-5.30); REDCELL DISTRIBUTION WIDTH-CV 14.7 % (11.5-14.5)
== END ==
LOC: ZCOL.LAB 08:10
DX: Z20.828 Contact with and (suspected) exposure to other viral communicable diseases (principal)

== ENCOUNTER → 2020-01-20 | Outpatient (CLI) | payer MEDICARE, MEDICAID | LOC: ZCOL.LAB 12:40 | DX: E03.9 Hypothyroidism, unspecified (principal) ==

== ENCOUNTER → 2020-06-25 | Outpatient (CLI) | payer MEDICARE, MEDICAID ==
[2020-06-27 09:10] LABS: URINE MICROALBUMIN 6.6 mg/dL (0.0-1.7)
== END ==
LOC: ZCOL.LAB 15:03
PROVIDERS: Internal Medicine
DX: R32 Unspecified urinary incontinence (principal)

== ENCOUNTER → 2020-06-29 | Outpatient (CLI) | payer MEDICARE, MEDICAID ==
[2020-06-30 03:56] LABS: BASO % 0.5 % (0.0-2.0); EOS # 0.5 (0.0-0.7); EOS % 6.7 % (0-4.0); GRAN # 4.9 (1.4-6.5); GRAN % 64.5 % (42.2-75.2); HEMATOCRIT 45.8 % (37.0-47.0); HEMOGLOBIN 13.9 g/dl (12.5-16.0); LYMPH # 1.6 (1.2-3.4); LYMPH % 20.4 % (20.0-51.0); MEAN CELL VOLUME 101 fl (80.0-100.0); MEAN CORPUSCULAR HEMOGLOBIN 31 pg (27.0-31.0); MEAN CORPUSCULAR HGB CONC 30 g/dl (33.0-37.0); MEAN PLATELET VOLUME 10.4 fl (7.4-10.4); MONO # 0.6 (0.1-0.6); MONO % 7.6 % (1.7-9.3); PLATELET COUNT 279 K/mm3 (130-400); RED BLOOD COUNT 4.54 M/mm3 (4.10-5.30)
[2020-06-30 04:00] LABS: ALBUMIN 4.4 gm/dL (3.5-5.0); BILIRUBIN,TOTAL 0.4 mg/dL (0.0-1.0); CALCIUM 9.3 mg/dL (8.4-10.2); CREATININE, serum 1.27 (0.52-1.25); POTASSIUM 5.4 mmol/L (3.4-5.0); TOTAL PROTEIN 8.1 gm/dL (6.4-8.2)
[2020-06-30 04:05] LABS: VALPROIC ACID (DEPAKENE) 34.3 ug/mL (50.0-100.0)
== END ==
LOC: ZCOL.LAB 13:22
PROVIDERS: Internal Medicine
DX: I11.0 Hypertensive heart disease with heart failure (principal); I50.9 Heart failure, unspecified; G47.00 Insomnia, unspecified

== ENCOUNTER → 2020-07-07 | Outpatient (CLI) | payer MEDICARE, MEDICAID ==
[2020-07-07 14:02] LABS: CALCIUM 9.1 mg/dL (8.4-10.2); CREATININE, serum 1.01 (0.52-1.25); POTASSIUM 4.6 mmol/L (3.4-5.0)
== END ==
LOC: ZCOL.LAB 13:30
PROVIDERS: Internal Medicine
DX: I11.0 Hypertensive heart disease with heart failure (principal); I50.9 Heart failure, unspecified

== ENCOUNTER → 2020-09-29 | Outpatient (CLI) | payer MEDICARE, MEDICAID ==
[~2020-09-29] MED LIST changes: +SYNTHROID0.088 MG/T PO
[2020-09-29 19:07] LABS: ALBUMIN 3.6 gm/dL (3.5-5.0); BILIRUBIN UNCONJUGATED 0.3 mg/dL (0.0-1.1); BILIRUBIN,DIRECT 0.1 mg/dL (0.0-0.4); BILIRUBIN,TOTAL 0.4 mg/dL (0.0-1.0); TOTAL PROTEIN 6.8 gm/dL (6.4-8.2)
== END ==
LOC: ZCOL.LAB 13:12
PROVIDERS: Internal Medicine
DX: I11.0 Hypertensive heart disease with heart failure (principal); I50.9 Heart failure, unspecified

== ENCOUNTER → 2020-10-22 | Outpatient (CLI) | payer MEDICARE, MEDICAID ==
[2020-10-22 12:06] LABS: COLLECTION METHOD CLEAN CATCH
[2020-10-22 12:34] LABS: MUCOUS Present /lpf; PH 7 (5-8); URINE APPEARANCE Hazy; URINE BACTERIA Rare /hpf; URINE BILIRUBIN Negative (NEGATIVE); URINE BLOOD 1+ (NEGATIVE); URINE COLOR Yellow; URINE GLUCOSE Negative (NEGATIVE); URINE KETONE Negative (NEGATIVE); URINE LEUKOCYTE ESTERASE 3+ (NEGATIVE); URINE NITRATE Negative (NEGATIVE); URINE PROTEIN(semi-quant) Negative (NEGATIVE); URINE RBC 0-2 /hpf; URINE UROBILINOGEN Negative (NEGATIVE)
== END ==
LOC: ZCOL.LAB 11:37
PROVIDERS: Internal Medicine
DX: N39.0 Urinary tract infection, site not specified (principal)

== ENCOUNTER → 2021-01-06 | Outpatient (CLI) | payer MEDICARE, MEDICAID ==
[2021-01-06 15:00] LABS: ALBUMIN 3.9 gm/dL (3.5-5.0); BILIRUBIN,TOTAL 0.4 mg/dL (0.0-1.0); CALCIUM 9.1 mg/dL (8.4-10.2); CHOLESTEROL RISK RATIO 4.7; CREATININE, serum 0.76 (0.52-1.25); POTASSIUM 4.7 mmol/L (3.4-5.0)
[2021-01-06 15:16] LABS: VALPROIC ACID (DEPAKENE) 23.2 ug/mL (50.0-100.0)
[2021-01-06 15:41] LABS: THYROID STIMULATING HORMONE 1.49 uIU/mL (0.465-4.680)
== END ==
LOC: ZCOL.LAB 12:29
PROVIDERS: Internal Medicine
DX: E11.9 Type 2 diabetes mellitus without complications (principal); E03.9 Hypothyroidism, unspecified; F41.9 Anxiety disorder, unspecified

== ENCOUNTER → 2021-01-10 | Outpatient (CLI) | payer MEDICARE, MEDICAID ==
[2021-01-10 14:06] LABS: BASO % 0.4 % (0.0-2.0); EOS # 0.3 (0.0-0.7); EOS % 3.8 % (0-4.0); GRAN # 4.5 (1.4-6.5); GRAN % 64.5 % (42.2-75.2); HEMOGLOBIN 11.9 g/dl (12.5-16.0); LYMPH # 1.4 (1.2-3.4); LYMPH % 19.9 % (20.0-51.0); MEAN CELL VOLUME 95 fl (80.0-100.0); MEAN CORPUSCULAR HEMOGLOBIN 31 pg (27.0-31.0); MEAN CORPUSCULAR HGB CONC 32 g/dl (33.0-37.0); MEAN PLATELET VOLUME 10.1 fl (7.4-10.4); MONO # 0.8 (0.1-0.6); MONO % 11.3 % (1.7-9.3); PLATELET COUNT 240 K/mm3 (130-400); RED BLOOD COUNT 3.87 M/mm3 (4.10-5.30)
[2021-01-10 14:08] LABS: HEMATOCRIT 36.9 % (37.0-47.0)
== END ==
LOC: ZCOL.LAB 13:42
PROVIDERS: Internal Medicine
DX: I48.0 Paroxysmal atrial fibrillation (principal); E11.9 Type 2 diabetes mellitus without complications; I50.22 Chronic systolic (congestive) heart failure

== ENCOUNTER 2021-03-18 13:56 | Inpatient (IN) | payer MEDICARE, MEDICAID ==
[~2021-03-18] VITALS: Ht 157.5 cm; Wt 73.1 kg
[~2021-03-18 13:56] MED LIST changes: -SYNTHROID0.088 MG/T PO
[2021-03-18 14:56] LABS: BASO % 0.2 % (0.0-2.0); EOS % 0.3 % (0-4.0); GRAN # 11.1 (1.4-6.5); GRAN % 85.2 % (42.2-75.2); HEMOGLOBIN 11.4 g/dl (12.5-16.0); LYMPH # 0.6 (1.2-3.4); LYMPH % 4.4 % (20.0-51.0); MEAN CELL VOLUME 92 fl (80.0-100.0); MEAN CORPUSCULAR HEMOGLOBIN 30 pg (27.0-31.0); MEAN CORPUSCULAR HGB CONC 33 g/dl (33.0-37.0); MEAN PLATELET VOLUME 9.6 fl (7.4-10.4); MONO # 1.2 (0.1-0.6); MONO % 9.4 % (1.7-9.3); PLATELET COUNT 216 K/mm3 (130-400); RED BLOOD COUNT 3.78 M/mm3 (4.10-5.30); REDCELL DISTRIBUTION WIDTH-CV 13.5 % (11.5-14.5)
[2021-03-18 14:58] LABS: HEMATOCRIT 34.9 % (37.0-47.0)
[2021-03-18 15:06] LABS: ALBUMIN 3.9 gm/dL (3.5-5.0); BILIRUBIN,TOTAL 0.6 mg/dL (0.0-1.0); CALCIUM 8.8 mg/dL (8.4-10.2); CREATININE, serum 1.02 (0.52-1.25); POTASSIUM 4.3 mmol/L (3.4-5.0); TOTAL PROTEIN 7.5 gm/dL (6.4-8.2)
[2021-03-18 15:19] LABS: TROPONIN-I 0.037 ng/mL (0.000-0.035)
[2021-03-18 16:17] LABS: COLLECTION METHOD CLEAN CATCH
[2021-03-18 16:27] LABS: MUCOUS Present /lpf; PH 5 (5-8); SQUAMOUS EPITHELIAL None Seen /hpf; URINE APPEARANCE Turbid; URINE BACTERIA Moderate /hpf; URINE BILIRUBIN Negative (NEGATIVE); URINE BLOOD 2+ (NEGATIVE); URINE COLOR Yellow; URINE GLUCOSE Negative (NEGATIVE); URINE KETONE Negative (NEGATIVE); URINE LEUKOCYTE ESTERASE 3+ (NEGATIVE); URINE NITRATE Positive (NEGATIVE); URINE PROTEIN(semi-quant) 2+ (NEGATIVE); URINE RBC 20-50 /hpf; URINE UROBILINOGEN Negative (NEGATIVE)
[2021-03-18 18:17] VITALS: BP 106/51; PULSE 80; TEMP 98.8
--- NOTE | 2021-03-18 18:49 | NUR ---
REPORT RECEIVED FROM NURSE PAREKH IN THE ED. PT TRANSFERRED TO ROOM. PT IS PLEASANTLY CONFUSED. PT DOES NOT RECALL WHY SHE WAS BROUGHT TO THE ED. PT DAUGHTER AT THE BEDSIDE, SHE DOES NOT KNOW WHAT MEDICATIONS HER MOTHER TAKES BUT WILL TRY TO GET A LIST FROM [facility] WHICH THE PT RESIDES. PT ORIENTED MUCH POSSIBLE TO THE ROOM. BED ALARM ON. COMFORT MEASURES IN PLACE. CALL-LIGHT IN REACH. BED IN LOW POSITION. REPORT GIVEN TO NURSE MENDEZ.
[2021-03-18 20:17] VITALS: PULSE 86
[2021-03-19] VITALS (7 sets, daily range): BP systolic 96–117; BP diastolic 46–68; PULSE 80–81; TEMP 98–100.3
--- NOTE | 2021-03-19 05:29 | NUR ---
PT DID HAVE INTERMITTENT SLEEP THROUGH OUT NIGHT. PT REMAINS A/OX1, 02 ROOM AIR. PT DID HAVE ONE INCONTINENT EPISODE THROUGH OUT NIGHT. PT CHANGED, LINENS CHANGED, PT DENIES PAIN,N,V,D. PT EXPRESSES NO ADDITONAL NEEDS AT THIS TIME. BED LOW, DOOR REMAINS OPEN FOR VISIBILITY, CALL LIGHT WITHIN REACH.
--- NOTE | 2021-03-19 09:44 | NUR ---
SHIFT ASSESSMENT PREFORMED. SCHEDULED MEDICATIONS GIVEN. BRIEF CHANGED, BARRIER CREAM APPLIED. REDNESS IN GROIN NOTED. PATIENT IS A&O X1. PATIENT REFUSED BREAKFAST AND REQUESTED THAT SHE BE ABLE TO SLEEP. PATIENT DENIES ANY PAIN, DISCOMFORT, SOA, OR FURTHER NEEDS AT THIS TIME. CALL LIGHT IN REACH. FALL PRECAUTIONS IN PLACE.
[2021-03-19 10:09] LABS: BASO % 0.3 % (0.0-2.0); EOS % 0.1 % (0-4.0); GRAN % 82.5 % (42.2-75.2); HEMOGLOBIN 10.3 g/dl (12.5-16.0); LYMPH # 0.8 (1.2-3.4); LYMPH % 5.9 % (20.0-51.0); MEAN CELL VOLUME 96 fl (80.0-100.0); MEAN CORPUSCULAR HEMOGLOBIN 30 pg (27.0-31.0); MEAN CORPUSCULAR HGB CONC 31 g/dl (33.0-37.0); MONO # 1.4 (0.1-0.6); MONO % 10.6 % (1.7-9.3); PLATELET COUNT 213 K/mm3 (130-400); RED BLOOD COUNT 3.43 M/mm3 (4.10-5.30); REDCELL DISTRIBUTION WIDTH-CV 13.9 % (11.5-14.5)
[2021-03-19 10:12] LABS: CALCIUM 8.5 mg/dL (8.4-10.2); CHOLESTEROL RISK RATIO 4.2; CREATININE, serum 0.99 (0.52-1.25); HEMATOCRIT 32.8 % (37.0-47.0)
[2021-03-19 10:21] LABS: IRON,SERUM 24 ug/dL (35-150)
[2021-03-19 10:31] LABS: TOTAL IRON BINDING CAPACITY 252 ug/dL (265-497)
[2021-03-19 10:59] LABS: TSH w REFLEX 0.314 uIU/mL (0.350-4.940)
--- NOTE | 2021-03-19 11:01 | NUR ---
CRITICAL VALUE TROPONIN OF 0.[address] ZAFAR. PATIENT DENIES ANY SOB, CHEST PAIN, VSS.
--- NOTE | 2021-03-19 11:06 | NUR ---
DR. ZAFAR CONTACTED REGARDING PATIENT'S HISTORY OF HEMORRHAGIC STROKE AND USE OF LOVENOX. DR. BRUNO.
--- NOTE | 2021-03-19 13:30 | NUR ---
stopped by but nothing neededd at this time.
--- NOTE | 2021-03-19 16:01 | NUR ---
Plan is to return to [facility]. SW met with DTR Bertin [phone] about care. PCP is the facility wide doctore. DTR reports that at [facility] patient was able to dress herself, walk down to the dinner room and visited every other weekend with DTR. DTR reports that she would like her mother to return to and complete PT at [facility]. 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 RX are managed at the facility. Was not and is not currently using any mobility DME. Dtr reports that the patient has a pacemaker/defib device. Denies any use of oxygen but does report that patient indicated that she was out of breath. Will follow for additonal supports if needs.
--- NOTE | 2021-03-19 17:42 | NUR ---
PATIENT HAS HAD AN EVENTFUL DAY. PULLED OUT IV OUT OF RIGHT HAND. ATTEMPTED TO RESTART IV THREE TIMES. ABLE TO GET CATHETER PARTIALLY IN VEIN BEFORE PATIENT PULLED ARM AWAY, DISLODGING THE CATHETER. PATIENT HAS BEEN REFUSING TO EAT TODAY. MULTIPLE ITEMS OFFERED WITH NO SUCCESS. PATIENT DENIES ANY PAIN, DISCOMFORT, SOA, OR FURTHER NEEDS AT THIS TIME. CALL LIGHT IN REACH. FALL PRECAUTIONS IN PLACE.
[2021-03-20 04:15] VITALS: BP 125/52; PULSE 80; TEMP 98.6
--- NOTE | 2021-03-20 06:20 | NUR ---
PT SLEPT THROUGH ENTIRE NIGHT. PT DENIES PAIN,N,V,D. MEDICATIONS ADMINISTERED ORDERED. PT EXPRESSES NO ADDITONAL NEEDS.
[2021-03-20 07:24] VITALS: BP 147/57; PULSE 79; TEMP 98.5
--- NOTE | 2021-03-20 08:51 | NUR ---
UPON ENTERING THE ROOM, PATIENT RESTING QUIETLY. NO S/S OF PAIN OR DISCOMFORT. SCHEDULED MEDICAITONS GIVEN. SHIFT ASSESSMENT PREFORMED. PATIENT DENIES ANY FURTHER NEEDS AT THIS TIME. PATIENT ORIENTED TO SELF. VSS. CALL LIGHT IN REACH. FALL PRECAUTIONS IN PLACE.
--- NOTE | 2021-03-20 09:35 | NUR ---
PATIENT UP TO CHAIR.
[2021-03-20 12:31] VITALS: BP 118/56; PULSE 80; TEMP 98.2
[2021-03-20 16:03] VITALS: BP 117/66; PULSE 79; TEMP 98.3
--- NOTE | 2021-03-20 17:21 | NUR ---
PATIENT HAS HAD AN UNEVENTFUL DAY. HAS BEEN RESTING WITH DAUGHTER AT THE BEDSIDE. SCHEDULED MEDICATIONS GIVEN. VSS. PATIENT ONLY ORIENTATED TO SELF. CALL LIGHT IN REACH. FALL PRECAUTIONS IN PLACE.
[2021-03-20 20:08] VITALS: BP 116/55; PULSE 80; TEMP 98.4
--- NOTE | 2021-03-20 21:20 | NUR ---
Patient is resting in bed, alert not oriented, VSS, no pain, nausea or vomiting. Assessment completed, medications provided. No further needs at this time. Call light within reach.
[2021-03-21 00:04] VITALS: BP 104/63; PULSE 78; TEMP 98.2
[2021-03-21 04:19] VITALS: BP 112/64; PULSE 80; TEMP 97.7
--- NOTE | 2021-03-21 07:25 | NUR ---
Patient has been calm and disoriented at night. A couple of times she tried to get up, but she is weak to stand up by herself. She forgets where is she and why. She was oriented. Report will be given to day nurse.
[2021-03-21 07:30] LABS: BASO % 0.4 % (0.0-2.0); EOS # 0.2 (0.0-0.7); EOS % 3.3 % (0-4.0); GRAN % 67.7 % (42.2-75.2); HEMOGLOBIN 10.2 g/dl (12.5-16.0); LYMPH # 1.1 (1.2-3.4); LYMPH % 14.4 % (20.0-51.0); MEAN CELL VOLUME 94 fl (80.0-100.0); MEAN CORPUSCULAR HEMOGLOBIN 30 pg (27.0-31.0); MEAN CORPUSCULAR HGB CONC 32 g/dl (33.0-37.0); MONO % 13.2 % (1.7-9.3); PLATELET COUNT 216 K/mm3 (130-400); RED BLOOD COUNT 3.38 M/mm3 (4.10-5.30); REDCELL DISTRIBUTION WIDTH-CV 13.3 % (11.5-14.5)
[2021-03-21 07:31] LABS: HEMATOCRIT 31.7 % (37.0-47.0)
[2021-03-21 07:40] LABS: CALCIUM 8.5 mg/dL (8.4-10.2); CREATININE, serum 0.83 (0.52-1.25); POTASSIUM 3.6 mmol/L (3.4-5.0)
[2021-03-21 08:33] VITALS: BP 126/63; PULSE 81
--- NOTE | 2021-03-21 10:10 | NUR ---
Assessment completed, alert but disoriented /agitated/ impulsive and cantankerous, patient is on room debbi and o2 sats are WNL, her lungs are CTA as far I can tell from limited assessment ability, CXR was clear yesterday, pulse irregular/ she is not on telemetry but has hx of a.fib, patient refused IV and labs, daughter just arrive and is able to help with cares as the patient is very cantankerous and reluctanct to let staff help her, she did allow us to check her teperature and is Aferile, urine cx + for E.coli and patient on Omniceff for UTI, daughter reports "she looks so much better today" and hopes we can discharge her back to [facility] today
[2021-03-21] MEDS ORDERED: OMNICEF 300MG300 MG PO (11:54)
[2021-03-21 12:06] VITALS: BP 130/65; PULSE 80; TEMP 97.9
--- NOTE | 2021-03-21 12:34 | NUR ---
Lauren with [facility] accepts patient back to rn long term care care At [facility]. restuarant crew worker met with patient and her daughter and confirmed that daughter will transport today at 1:00. Worker faxed orders to [facility].
[2021-03-21] MEDS ORDERED: SYNTHROID0.088 MG/T PO (12:54)
--- NOTE | 2021-03-21 13:00 | NUR ---
Patient transferring back to [facility], her daughter and taking her by POV, discharge orders and paperwork given to daughter
[2021-03-21 13:44] VITALS: BP 130/65; PULSE 80; TEMP 97.9
[2021-03-21 16:00] VITALS: BP 133/70; PULSE 94; TEMP 99.8
== END 2021-03-21 14:00 | DRG 690 ==
LOC: COL.ER 13:56 → MEDICAL 16:20
PROVIDERS: Physician Assistant; ADMIT Internal Medicine
DX: N39.0 Urinary tract infection, site not specified (principal); E87.1 Hypo-osmolality and hyponatremia; I48.20 Chronic atrial fibrillation, unspecified; E03.9 Hypothyroidism, unspecified; D64.9 Anemia, unspecified; F03.90 Unspecified dementia, unspecified severity, without behavioral disturbance, psychotic disturbance, mood disturbance, and anxiety; Z20.822 Contact with and (suspected) exposure to COVID-19; R79.89 Other specified abnormal findings of blood chemistry; Z86.73 Personal history of transient ischemic attack (TIA), and cerebral infarction without residual deficits
CPT/HCPCS: 99232-AI; 99239; A9284; J0692; J0696; J1650; J7030; Q9967

== ENCOUNTER → 2021-05-09 | Outpatient (CLI) | payer MEDICARE, MEDICAID ==
[~2021-05-09] MED LIST changes: +SYNTHROID0.088 MG/T PO
[2021-05-09 13:00] LABS: CALCIUM 9.7 mg/dL (8.4-10.2); CREATININE, serum 0.82 mg/dL (0.57-1.11); POTASSIUM 4.3 mmol/L (3.5-4.5); THYROID STIMULATING HORMONE 3.044 uIU/mL (0.350-4.940)
== END ==
LOC: ZCOL.LAB 12:37
PROVIDERS: Internal Medicine
DX: E03.9 Hypothyroidism, unspecified (principal); E11.9 Type 2 diabetes mellitus without complications; I50.22 Chronic systolic (congestive) heart failure

== ENCOUNTER → 2021-07-08 | Outpatient (CLI) | payer MEDICARE, MEDICAID ==
[2021-07-08 17:32] LABS: COLLECTION METHOD CATHETER
[2021-07-08 17:43] LABS: BUDDING YEAST Present (NOT PRESENT); MUCOUS Present (NOT PRESENT); PH 7 (5-8); URINE APPEARANCE Cloudy (CLEAR/HAZY); URINE BACTERIA None Seen (NONE SEEN); URINE BILIRUBIN Negative (NEGATIVE); URINE BLOOD 2+ (NEGATIVE); URINE COLOR Yellow (YELLOW); URINE GLUCOSE Negative (NEGATIVE); URINE KETONE Negative (NEGATIVE); URINE LEUKOCYTE ESTERASE 3+ (NEGATIVE); URINE NITRATE Negative (NEGATIVE); URINE PROTEIN(semi-quant) Negative (NEGATIVE); URINE UROBILINOGEN Negative (NEGATIVE); URINE WBC >50 /hpf (0-2)
== END ==
LOC: ZCOL.LAB 16:50
PROVIDERS: Internal Medicine
DX: N39.0 Urinary tract infection, site not specified (principal)

== ENCOUNTER → 2021-12-21 | Outpatient (CLI) | payer MEDICARE, MEDICAID ==
[2021-12-21 09:37] LABS: COLLECTION METHOD CLEAN CATCH
[2021-12-21 09:54] LABS: MUCOUS Present (NOT PRESENT); PH 5 (5-8); SQUAMOUS EPITHELIAL None Seen /hpf (0-10); URINE APPEARANCE Clear (CLEAR/HAZY); URINE BACTERIA None Seen /hpf (NONE SEEN); URINE BILIRUBIN Negative (NEGATIVE); URINE BLOOD 2+ (NEGATIVE); URINE COLOR Amber (YELLOW); URINE GLUCOSE Negative (NEGATIVE); URINE KETONE 1+ (NEGATIVE); URINE LEUKOCYTE ESTERASE Trace (NEGATIVE); URINE NITRATE Negative (NEGATIVE); URINE PROTEIN(semi-quant) 1+ (NEGATIVE)
== END ==
LOC: ZCOL.LAB 09:27
PROVIDERS: Internal Medicine
DX: R32 Unspecified urinary incontinence (principal)

== ENCOUNTER → 2021-12-30 | Outpatient (CLI) | payer MEDICARE, MEDICAID ==
[~2021-12-30] MED LIST changes: +CENTRUM SILVER1 CTB PO; +EFFEXOR XR37.5 MG/CA PO; -FERROUS GL325 MG/TAB; +FERROUS GL325 MG/TAB PO; +K-DUR20 MEQ PO; +LASIX 40MG TABL40 MG PO
[2021-12-30 15:55] LABS: BASO % 0.2 % (0.0-2.0); EOS % 0.2 % (0.0-4.0); GRAN # 6.4 K/mm3 (1.4-6.5); GRAN % 76.8 % (42.2-75.2); HEMATOCRIT 34.1 % (37.0-47.0); HEMOGLOBIN 10.6 g/dl (12.5-16.0); LYMPH # 1.1 K/mm3 (1.2-3.4); MEAN CELL VOLUME 91 fl (80.0-100.0); MEAN CORPUSCULAR HEMOGLOBIN 28 pg (27-31); MEAN CORPUSCULAR HGB CONC 31 g/dl (33.0-37.0); MEAN PLATELET VOLUME 9.8 fl (7.4-10.4); MONO # 0.8 K/mm3 (0.1-0.6); MONO % 9.2 % (1.7-9.3); PLATELET COUNT 311 K/mm3 (130-400); RED BLOOD COUNT 3.75 M/mm3 (4.10-5.30); REDCELL DISTRIBUTION WIDTH-CV 14.6 % (11.5-14.5)
[2021-12-30 15:58] LABS: ALBUMIN 2.8 gm/dL (3.4-4.8); CALCIUM 8.5 mg/dL (8.4-10.2); CREATININE, serum 0.96 mg/dL (0.57-1.11); POTASSIUM 4.5 mmol/L (3.5-4.5)
[2021-12-30 16:28] LABS: THYROID STIMULATING HORMONE 4.005 uIU/mL (0.350-4.940)
== END ==
LOC: ZCOL.LAB 15:25
PROVIDERS: Internal Medicine
DX: I50.22 Chronic systolic (congestive) heart failure (principal); E03.9 Hypothyroidism, unspecified

== ENCOUNTER 2021-12-31 17:32 | Inpatient (IN) | payer MEDICARE, MEDICAID ==
[~2021-12-31] VITALS: Ht 152.4 cm; Wt 64.1 kg
[~2021-12-31 17:32] MED LIST changes: -CENTRUM SILVER1 CTB PO; -EFFEXOR XR37.5 MG/CA PO; -K-DUR20 MEQ PO; -LASIX 40MG TABL40 MG PO
[2021-12-31 18:03] LABS: BASO % 0.1 % (0.0-2.0); GRAN # 7.9 K/mm3 (1.4-6.5); GRAN % 87.6 % (42.2-75.2); LYMPH # 0.5 K/mm3 (1.2-3.4); LYMPH % 5.8 % (20.0-51.0); MEAN CELL VOLUME 87 fl (80.0-100.0); MEAN CORPUSCULAR HGB CONC 33 g/dl (33.0-37.0); MEAN PLATELET VOLUME 9.6 fl (7.4-10.4); MONO # 0.5 K/mm3 (0.1-0.6); MONO % 5.9 % (1.7-9.3); PLATELET COUNT 252 K/mm3 (130-400); RED BLOOD COUNT 3.34 M/mm3 (4.10-5.30); REDCELL DISTRIBUTION WIDTH-CV 14.9 % (11.5-14.5)
[2021-12-31 18:04] LABS: HEMATOCRIT 28.9 % (37.0-47.0); HEMOGLOBIN 9.4 g/dl (12.5-16.0); MEAN CORPUSCULAR HEMOGLOBIN 28 pg (27-31)
[2021-12-31 18:20] LABS: ALBUMIN 2.5 gm/dL (3.4-4.8); BILIRUBIN,TOTAL 1.2 mg/dL (0.2-1.2); CALCIUM 8.6 mg/dL (8.4-10.2); CREATININE, serum 0.94 mg/dL (0.57-1.11); POTASSIUM 4.3 mmol/L (3.5-4.5); TOTAL PROTEIN 6.8 gm/dL (6.2-8.1)
[2021-12-31 18:41] LABS: COLLECTION METHOD CLEAN CATCH
[2021-12-31 18:53] LABS: MUCOUS Present (NOT PRESENT); PH 5 (5-8); SQUAMOUS EPITHELIAL 0-2 /hpf (0-10); URINE APPEARANCE Cloudy (CLEAR/HAZY); URINE BACTERIA Rare /hpf (NONE SEEN); URINE BLOOD 2+ (NEGATIVE); URINE COLOR Amber (YELLOW); URINE GLUCOSE Negative (NEGATIVE); URINE KETONE Trace (NEGATIVE); URINE NITRATE Negative (NEGATIVE); URINE PROTEIN(semi-quant) 2+ (NEGATIVE); URINE UROBILINOGEN >=4.0 (NEGATIVE)
[2021-12-31] MEDS ORDERED: CENTRUM SILVER1 CTB PO (19:32)
[2021-12-31] MEDS ORDERED: DULCOLAX S10 MG/SUPP RC (19:33)
[2021-12-31] MEDS ORDERED: EFFEXOR XR37.5 MG/CA PO (19:34)
[2021-12-31] MEDS ORDERED: LASIX 40MG TABL40 MG PO (19:35)
[2021-12-31] MEDS ORDERED: MIRALAX PA17 GM/Dose PO (19:36)
[2021-12-31] MEDS ORDERED: K-DUR20 MEQ PO (19:37)
[2021-12-31 20:54] VITALS: BP 111/51; PULSE 78; TEMP 98.6
--- NOTE | 2021-12-31 20:55 | NUR ---
PT ARRIVES VIA CART FROM ED. IS ALERT TO SELF. INCONTINENT OF URINE AND STOOL, FAM CARES GIVEN. NOTED REDDENED COCCYX, NO OPEN AREAS. DRY SKIN OF LOWER LEGS AND FEET, NO OPEN AREAS. HAS RFA SL. KEEPS EYES CLOSED WHEN SPOKEN TO. BED ALARM ON.
[2021-12-31] MEDS ORDERED: SEROQUEL 2525 MG/TAB PO (22:30)
[2021-12-31 23:46] VITALS: BP 132/56; PULSE 81; TEMP 98.4
[2022-01-01 03:48] VITALS: BP 124/45; PULSE 78; TEMP 99
--- NOTE | 2022-01-01 03:55 | NUR ---
INCONTINENT OF LARGE AMOUNT OF DARK URINE, FAM CARES PROVIDED, REPOSITIONED TO LEFT SIDE. PT MOANS WITH TURNING AND SAYS "STOP IT". BED ALARM ON.
--- NOTE | 2022-01-01 05:55 | NUR ---
PT TAKES AM MED WITH SIP OF WATER. HAS BEEN INCONTINENT OF URINE AND STOOL THIS SHIFT. REPOSITIONED BY STAFF.
--- NOTE | 2022-01-01 06:50 | NUR ---
Report received, assumed care for day shift.
[2022-01-01 07:02] LABS: BASO % 0.3 % (0.0-2.0); GRAN % 84.1 % (42.2-75.2); LYMPH # 0.5 K/mm3 (1.2-3.4); LYMPH % 7.5 % (20.0-51.0); MEAN CELL VOLUME 89 fl (80.0-100.0); MEAN CORPUSCULAR HGB CONC 32 g/dl (33.0-37.0); MEAN PLATELET VOLUME 9.6 fl (7.4-10.4); MONO # 0.5 K/mm3 (0.1-0.6); MONO % 7.4 % (1.7-9.3); PLATELET COUNT 206 K/mm3 (130-400)
[2022-01-01 07:04] LABS: HEMATOCRIT 28.5 % (37.0-47.0); MEAN CORPUSCULAR HEMOGLOBIN 28 pg (27-31)
[2022-01-01 07:17] LABS: CALCIUM 8.2 mg/dL (8.4-10.2); CREATININE, serum 0.81 mg/dL (0.57-1.11); POTASSIUM 4.1 mmol/L (3.5-4.5)
[2022-01-01 07:26] VITALS: BP 110/43; PULSE 79; TEMP 98.1
--- NOTE | 2022-01-01 07:45 | NUR ---
Assessment complete. Alert but only oriented to self. Denies pain/nausea/shortness of breath. VS remain stable. States "I am in a really bad mood today." Noted to have redness to coccyx-repositioned in bed with pillow support. INT to right wrist flushes without difficulty-no s/s of infiltration noted. SCDs bilat. Attempted to administer AM medications however patient kept spitting them out into bed. Will retry later when breakfast arrives. Plan of care discussed for this shift to include meds/calling for questions/concerns. Call light in reach. Will monitor.
[2022-01-01 12:00] VITALS: BP 97/49; PULSE 80; TEMP 98.2
--- NOTE | 2022-01-01 12:39 | NUR ---
Report from PCT that patients O2 saturation was 87% on room air while sleeping. O2 saturation increases to 92% when awake. Patient has been very drowsy today-applied O2@2L/NC with sleeping.
--- NOTE | 2022-01-01 13:28 | NUR ---
Pt is suffers from dementia and DPOA-HC is Thien at [phone]. Pt is from [facility] and needs help with all ADLs. Pt is DNR and Thien does not want life saving measures at all. PCP is urszula Lakhani and gets medications from [facility]. No other needs stated at this time. Sw to await further recommendations. DC: return back to [facility].
[2022-01-01 16:00] VITALS: BP 104/54; PULSE 81; TEMP 97.7
--- NOTE | 2022-01-01 17:28 | NUR ---
Patient has slept entire shift. Is alert to self but not oriented. VS have remained stable. Denied pain/nausea/shortness of breath. Refused most of medications-would spit them out into bed. INT to right wrist flushes well-no s/s of infiltration noted. Denies current needs. Call light in reach. Will monitor.
[2022-01-01 19:53] VITALS: BP 119/62; PULSE 84; TEMP 98.6
--- NOTE | 2022-01-01 21:25 | NUR ---
PT IN BED, ANSWERS TO HER NAME BEING CALLED, NOT SURE WHERE SHE IS. TAKES HS MEDS IN PUDDING, DOES WELL. HAS DRANK ALMOST ENTIRE ENSURE SHAKE. INT TO RFA FLUSHES WELL. IS INCONTINENT OF URINE, PUREWIK IN PLACE. COCCYX REDDENED, INTACT. SCDS ON BILATERALLY. AFEBRILE. BED ALARM ON.
[2022-01-02] VITALS (7 sets, daily range): BP systolic 114–130; BP diastolic 57–66; PULSE 79–90; TEMP 98.7–99.6
[2022-01-02 06:33] LABS: BASO % 0.3 % (0.0-2.0); EOS # 0.1 K/mm3 (0.0-0.7); EOS % 1.1 % (0.0-4.0); GRAN # 5.3 K/mm3 (1.4-6.5); GRAN % 74.2 % (42.2-75.2); LYMPH # 0.8 K/mm3 (1.2-3.4); LYMPH % 11.7 % (20.0-51.0); MEAN CELL VOLUME 88 fl (80.0-100.0); MEAN CORPUSCULAR HGB CONC 32 g/dl (33.0-37.0); MEAN PLATELET VOLUME 9.9 fl (7.4-10.4); MONO # 0.8 K/mm3 (0.1-0.6); MONO % 11.7 % (1.7-9.3); PLATELET COUNT 250 K/mm3 (130-400); RED BLOOD COUNT 3.15 M/mm3 (4.10-5.30); REDCELL DISTRIBUTION WIDTH-CV 14.9 % (11.5-14.5)
--- NOTE | 2022-01-02 06:35 | NUR ---
PT AWAKE, TAKES AM MED WITHOUT PROBLEM. IS ALERT TO SELF. PLEASANT THIS AM.
[2022-01-02 06:46] LABS: CALCIUM 8.5 mg/dL (8.4-10.2); CREATININE, serum 0.76 mg/dL (0.57-1.11); POTASSIUM 4.1 mmol/L (3.5-4.5)
[2022-01-02 06:54] LABS: HEMATOCRIT 27.8 % (37.0-47.0); HEMOGLOBIN 8.9 g/dl (12.5-16.0); MEAN CORPUSCULAR HEMOGLOBIN 28 pg (27-31)
--- NOTE | 2022-01-02 08:49 | NUR ---
Lauren, at [facility], contacted this SW and clarified that the patient is a long-term care resident with them. SW faxed updates to [facility]. *Discharge plan: [facility]*
--- NOTE | 2022-01-03 01:04 | NUR ---
PATIENT IN BED ON ROOM ENTRY. ALERT BUT NOT ORIENTED. HS MEDS PER EMAR. DENIES PAIN. CHECK AND CHANGE PER ENCODING CLERK, PATIENT DOES NOT WANT TO BE TOUCHED MUCH AND REFUSES TEMP CHECK. PUREWICK IS IN PLACE. IVF TO R FA.
[2022-01-03 04:00] VITALS: BP 127/61; PULSE 82; TEMP 98.3
[2022-01-03 08:03] VITALS: BP 134/64; PULSE 81; TEMP 98.9
--- NOTE | 2022-01-03 10:03 | NUR ---
LEFT VOICEMAIL FOR DR DE JESUS REGARDING CONSULT FOR PATIENT.
[2022-01-03 10:48] LABS: MEAN CELL VOLUME 87 fl (80.0-100.0); MEAN CORPUSCULAR HGB CONC 32 g/dl (33.0-37.0); MEAN PLATELET VOLUME 9.3 fl (7.4-10.4); PLATELET COUNT 280 K/mm3 (130-400); RED BLOOD COUNT 3.47 M/mm3 (4.10-5.30); REDCELL DISTRIBUTION WIDTH-CV 14.7 % (11.5-14.5)
[2022-01-03 10:51] LABS: HEMATOCRIT 30.2 % (37.0-47.0); HEMOGLOBIN 9.7 g/dl (12.5-16.0); MEAN CORPUSCULAR HEMOGLOBIN 28 pg (27-31)
[2022-01-03 10:58] LABS: CALCIUM 8.4 mg/dL (8.4-10.2); CREATININE, serum 0.66 mg/dL (0.57-1.11); POTASSIUM 4.5 mmol/L (3.5-4.5)
[2022-01-03 11:25] LABS: BAND 13 % (0-10); EOSINOPHIL 2 % (0-4); LYMPHOCYTE 17 % (20.0-51.0); NEUTROPHILS 61 % (42.0-75.2); PLATELET ESTIMATE NORMAL (NORMAL)
[2022-01-03 11:45] VITALS: BP 137/58; PULSE 78; TEMP 98.4
--- NOTE | 2022-01-03 13:07 | NUR ---
PT/OT are recommending the patient return back to [facility]. SAMIRA staffed with the hospitalist. The patient may be able to discharge tomorrow. SAMIRA notified Lauren at [facility]. SW to fax updates to [facility]. SAMIRA contacted and updated the patient's daughter, Thien. She is in agreement to discharge tomorrow. SAMIRA read the IM form outloud to Thien over the phone. Thien verbalized understanding and gave SAMIRA approval to sign the form on her behalf.
[2022-01-03 15:58] VITALS: BP 142/75; PULSE 80; TEMP 99.2
--- NOTE | 2022-01-03 18:26 | NUR ---
PATIENT HAD AN UNEVENTFUL DAY. SHE REFUSED MOST OF HER MORNING MEDICAITONS, HOWEVER AGREED TO TAKE HER COREG. AND HAS TAKEN HER SCHEDULED MEDICATION THIS AFTERNOON WITH NO ISSUE. PATIENT IS STABLE, NO COMPLAINTS, RESTING IN BED.
[2022-01-03 20:10] VITALS: BP 151/70; PULSE 100; TEMP 98.3
[2022-01-04] VITALS (7 sets, daily range): BP systolic 122–139; BP diastolic 47–72; PULSE 79–88; TEMP 97.7–98.9
--- NOTE | 2022-01-04 01:48 | NUR ---
PATIENT IN BED. PLEASANT THIS EVENING. HS MEDS PER EMAR WITHOUT DIFFICULTY. SPOKE WITH DR. POOL AND IV ANCEF STARTED.
[2022-01-04 06:29] LABS: MEAN CELL VOLUME 90 fl (80.0-100.0); MEAN CORPUSCULAR HGB CONC 31 g/dl (33.0-37.0); MEAN PLATELET VOLUME 9.7 fl (7.4-10.4); PLATELET COUNT 286 K/mm3 (130-400); RED BLOOD COUNT 3.17 M/mm3 (4.10-5.30); REDCELL DISTRIBUTION WIDTH-CV 14.7 % (11.5-14.5)
[2022-01-04 06:32] LABS: HEMATOCRIT 28.4 % (37.0-47.0); HEMOGLOBIN 8.9 g/dl (12.5-16.0); MEAN CORPUSCULAR HEMOGLOBIN 28 pg (27-31)
[2022-01-04 06:41] LABS: ALBUMIN 1.8 gm/dL (3.4-4.8); CALCIUM 8.1 mg/dL (8.4-10.2); CREATININE, serum 0.66 mg/dL (0.57-1.11); MAGNESIUM 2.1 mg/dL (1.6-2.6); PHOSPHOROUS 3.9 mg/dL (2.3-4.7); POTASSIUM 4.2 mmol/L (3.5-4.5)
--- NOTE | 2022-01-04 08:00 | NUR ---
PATIENT IS ORIENTED TO SELF, OTHERWISE CONFUSED AT BASELINE. HX OF DEMENTIA. VSS. NO COMPLAINTS. PATIENT DOESN'T LIKE TO BE BOTHERED/TOUCHED A LOT AND HAS BEEN REPORTED BY NIGHT STAFF DIFFICULT AT TIMES. NURSING WAS ABLE TO GET PATIENT TO TAKE MOST OF HER AM MEDS. PATIENT DID SPIT OUT 3 OF THE BIG PILLS THAT WERE MOSTLY VITAMINS, SEE EMAR. PATIENT OFTEN REFUSES TO EAT AND IS A FEEDER. PATIENT EATS BETTER FOR HER SISTER WHEN SHE IS HERE. NO FAMILY AT BEDSIDE AT THIS TIME. HEAD TO TOE ASSESSMENT COMPLETE. DNR STATUS. PATIENT TOOK SOME BITES OF PUDDING BUT REFUSED BREAKFAST TRAY. INCONTINENT OF BOWL/BLADDER. PT/OT CONSULTED. NO OTHER NEEDS AT THIS TIME. CALL LIGHT IN REACH. BED ALARM ON.
[2022-01-04 09:20] LABS: BAND 7 % (0-10); LYMPHOCYTE 22 % (20.0-51.0); NEUTROPHILS 60 % (42.0-75.2); PLATELET ESTIMATE NORMAL (NORMAL)
--- NOTE | 2022-01-04 10:52 | NUR ---
ID switched the patient's antibiotics to IV ancef and is recommending an echocardiogram. SW notified and faxed updates to Lauren at [facility].
--- NOTE | 2022-01-04 14:05 | NUR ---
PATIENT'S DAUGHTER CALLED, GIVEN PATIENT STATUS UPDATE. DAUGHTER INQUIRING IF PT/OT WAS ABLE TO WALK PATIENT IN HALLS. PATIENT HAS BEEN RESISTANT WITH THERAPIES AND NURSING STAFF SHE DOES NOT LIKE TO BE TOUCHED OR BOTHERED. DAUGHTER GAVE NURSING STAFF THE IMPRESSION SHE WOULD LIKE HER MOTHER TO GET UP WITH PT, EVEN IF ITS AGENST HER WILL, DAUGHTER EDUCATED ABOUT STAFF RESTRICTIONS WITH REFUSALS & COMBATIVENESS. COMMERCIAL OCEAN CLAMMER ALSO REPORTS EDUCATING DAUGHTER ABOUT DIFFICULTY WITH THESE RESTRICTIONS. PLAN IS FOR PATIENT TO RETURN BACK TO HER [place] WHERE SHE LIVES WITH THE HOPES THAT HER NORMAL ENVIRONMENT WOULD HELP FACILITATE COOPERATION WITH THERAPIES.
--- NOTE | 2022-01-04 22:53 | NUR ---
PATIENT ALERT BUT NOT ORIENTED. REPLYING APPROPRIATELY BUT NOT COOPERATIVE. STATED SHE WOULD TAKE HER PILLS BUT THEN REFUSED TO OPEN HER MOUTH. HS MEDS NOT TAKEN. HAS BEEN INCONTINENT AND CHECK AND CHANGED PER CNAs. DOES GET AGRESSIVE VERBALLY AND PHYSICALLY WHEN ROLLED BY STAFF.
[2022-01-05 04:00] VITALS: BP 148/65; PULSE 79; TEMP 97.8
[2022-01-05 07:08] VITALS: BP 144/64; PULSE 80; TEMP 99
--- NOTE | 2022-01-05 07:18 | NUR ---
0500-patient refused morning meds.
--- NOTE | 2022-01-05 08:00 | NUR ---
Patient laying in bed sleeping, easily awakened with verbal command. Alert and confused. Nurse reoriented the patient. Patient refusing to take PO medication. Took one sip of ensure with the assistance of nurse aid. VSS. IV CDI. Patient incontinent of urine, stephanie changed. Call light within reach. Bed alarm on
--- NOTE | 2022-01-05 10:41 | NUR ---
Phone call made to patient's daughter, Thien #[phone]. She feels that her mother "isn't in the fight" anymore and does so much better at [facility] and she didn't even want her admitted in the first place because of how her mother reacts to the hospital and refuses care. Discussed comfort care and hospice and Thien states she would like her mother to return to [facility], today if possible, and she will talk with [facility] staff about hospice and decide if she wants an outside agency or to just have [facility] take care of things. Gave my contact information if Thien has any questions or concerns. Notified care team and SW of discussion.
[2022-01-05 11:30] VITALS: BP 146/89; PULSE 80; TEMP 98.8
--- NOTE | 2022-01-05 11:47 | NUR ---
A palliative care consult was ordered. Christi, palliative care RN, notified SAMIRA that the patient's daughter, Thien, would like the patient to return back to [facility] on comfort care. The hospitalist has been updated and he is thinking discharge tomorrow. Thien is inquiring if [facility] can provide the comfort care or if she would need to choose a hospice agency. SAMIRA attempted to contact Lauren at [facility] to ask about this. SAMIRA left her a message.
--- NOTE | 2022-01-05 11:55 | NUR ---
Lauren, at [facility], reports that they are able to provide comfort care. SAMIRA contacted and updated the patient's daughter, Thien. Thien would like to plan on the patient returning back to [facility] tomorrow on comfort care. SAMIRA read the IM form outloud to Thien over the phone. Thien verbalized understanding and gave SW approval to sign the form on her behalf. SW to fax updates to [facility]. *Discharge plan: [facility] on comfort care*
[2022-01-05 15:52] VITALS: BP 139/66; PULSE 80; TEMP 98.1
--- NOTE | 2022-01-05 17:55 | NUR ---
Patient resting in bed, refused to get up into the recliner. Nursing staff assisted with eatting pudding. Patient alert, but confused. IV CDI. Daughter was at the bedside and assisted the nurse with administering medication. Denies pain and discomfort. Call light within reach. Bed alarm on
[2022-01-05 19:35] VITALS: BP 114/62; PULSE 78; TEMP 98.2
--- NOTE | 2022-01-05 22:45 | NUR ---
PATIENT IN BED. ALERT BUT NOT ORIENTED. HS MEDS PER EMAR WITHOUT DIFFICULTY. DENIES PAIN.
[2022-01-06 00:27] VITALS: BP 124/63; PULSE 81; TEMP 97.9
[2022-01-06 04:03] VITALS: BP 115/63; PULSE 79; TEMP 98.4
[2022-01-06] MEDS ORDERED: SYSTANE 0.4%-0.1 SOL OU (07:35)
[2022-01-06] MEDS ORDERED: TRANSDERM-0.5 MG/21 TD (07:35)
[2022-01-06] MEDS ORDERED: ROXANOL 20MG20 MG/ML SL (07:36)
[2022-01-06] MEDS ORDERED: ATIVAN 1MG T1 MG/TAB PO (07:36)
[2022-01-06 07:45] VITALS: BP 150/63; PULSE 80; TEMP 98.2
--- NOTE | 2022-01-06 08:00 | NUR ---
PATIENT IS ALERT AND CONFUSED AT BASELINE. PATIENT SEEMS TO BE IN A BAD MOOD TODAY. NURSING WAS ABLE TO TALK HER INTO TAKING A FEW OF HER AM MEDS BUT THEN PATIENT REFUSED TO TAKE THE REST, SEE MAR. VSS. HEAD TO TOE ASSESSMENT COMPLETE. PLAN IS FOR PATIENT TO TRANSFER BACK TO [place] ON COMFORT CARES. NO FAMILY AT BEDSIDE AT THIS TIME. CALL LIGHT IN REACH. BED ALARM ON.
--- NOTE | 2022-01-06 09:36 | NUR ---
The patient is discharge today, 01/06, back to [facility] for long-term care on comfort care. Transportation was scheduled at 1230, via [facility]. SAMIRA informed the patient RN and her daughter, Thien, of the transport time. No additional needs at this time.
--- NOTE | 2022-01-06 09:50 | NUR ---
PATIENT CHECK & CHANGED. ALSO OBATINED COVID SWAB DURING CARES. PATIENT DOES NOT LIKE HAVING ANY CARES PROVIDED AND ATTEMPTED TO BITE & HIT STAFF. STAFF WAS ABLE TO TALK CALMLY TO PATIENT AND TALK HER THROUGH CARES WHICH HELPED CALM HER DOWN. PLAN IS FOR PATIENT TO GO BACK TO HER [facility] ON COMFORT CARES.
[2022-01-06 11:45] VITALS: BP 119/63; PULSE 80; TEMP 98.2
--- NOTE | 2022-01-06 12:45 | NUR ---
PATIENT DISCHARGING BACK TO [place]. INFO PACKET GIVEN TO MICHAELA STRAUSS. CALLED REPORT TO NURSE AT [facility]. PATIENT IS DRESSED, PACKED AND ESCORTED OUT VIA WC.
== END 2022-01-06 12:45 | disposition hospice, home (50) | DRG 690 ==
LOC: COL.ER 17:32 → SURG 19:14
PROVIDERS: Internal Medicine; Physician Assistant; Student in an Organized Health Care Education/Training Program; ADMIT Student in an Organized Health Care Education/Training Program
DX: N39.0 Urinary tract infection, site not specified (principal); R78.81 Bacteremia; F03.90 Unspecified dementia, unspecified severity, without behavioral disturbance, psychotic disturbance, mood disturbance, and anxiety; I48.91 Unspecified atrial fibrillation; I10 Essential (primary) hypertension; Z66 Do not resuscitate; Z51.5 Encounter for palliative care; I25.10 Atherosclerotic heart disease of native coronary artery without angina pectoris; R53.81 Other malaise; F32.A Depression, unspecified; Z20.822 Contact with and (suspected) exposure to COVID-19; B95.61 Methicillin susceptible Staphylococcus aureus infection as the cause of diseases classified elsewhere; E03.9 Hypothyroidism, unspecified; Z79.82 Long term (current) use of aspirin; Z79.01 Long term (current) use of anticoagulants; Z86.73 Personal history of transient ischemic attack (TIA), and cerebral infarction without residual deficits; Z90.710 Acquired absence of both cervix and uterus; Z95.0 Presence of cardiac pacemaker; Z95.4 Presence of other heart-valve replacement; Z88.6 Allergy status to analgesic agent; Z88.0 Allergy status to penicillin; Z88.2 Allergy status to sulfonamides; Z23 Encounter for immunization
CPT/HCPCS: 99223-AI; 99232-AI; 99233-AI; 99239; J0690; J0696; J7030; J7120